=== PATIENT | female | born 1950 | race Caucasian/White ===

== ENCOUNTER → 2017-11-01 | Outpatient (CLI) | payer MEDICARE ==
--- NOTE | 2017-11-01 11:20 | BD ---
EXAMINATION TYPE: Axial Bone Density DATE OF EXAM: 11/01/2017 COMPARISON: NONE CLINICAL HISTORY: 67 YR OLD FEMALE....ICD-10 CODE: Z13.820 OSTEOPOROSIS Height: 63 Weight: 174 FRAX RISK QUESTIONS: Current Tobacco Use: YES RISK FACTORS HISTORY OF: Active: YES Diet low in dairy products/other sources of calcium: NO Postmenopausal woman: YES AT 45 YRS OLD MEDICATIONS: Additional Medications: SIMVASTATIN, Additional History: ARTHRITIS, BACK AND NECK EXAM MEASUREMENTS: Bone mineral densitometry was performed using the [employer] System. Bone mineral density as measured about the Lumbar spine is: ----- L1-L4(G/cm2): 1.347 T Score Values are as follows: ----- L1: 0.3 ----- L2: -0.2 ----- L3: 2.5 ----- L4: 2.8 ----- L1-L4: 1.4 Bone mineral density IS HER FIRST BONE DENSITY AT [facility] Bone mineral density about the R hip (g/cm2): 0.795 Bone mineral density about the L hip (g/cm2): 0.859 T Score values are as follows: -----R Neck: -2.0 -----L Neck: -1.2 -----R Total: -1.7 -----L Total: -1.2 Bone mineral density IS HER FIRST AT [facility] FRAX%s: THERE IS A 9.0% CHANCE OF A MAJOR OSTEOPOROTIC FX AND A 3.3% FOR HIP FX....PROBABILITY OF FX IN 10 YRS TIME IMPRESSION: Osteopenia (T Score between -2.5 and -1). There is slightly increased risk of fracture and the patient may be considered for treatment. Re-Screen 2-5 years. NOTE: T-SCORE=SD OF THE YOUNG ADULT MEAN.
--- NOTE | 2017-11-05 09:53 | MM ---
Reason for exam: screening (asymptomatic). Last mammogram was performed 3 years and 9 months ago. History: Patient is postmenopausal. Core biopsy of the left breast. Physical Findings: A clinical breast exam by your physician is recommended on an annual basis and results should be correlated with mammographic findings. MG 3D Screening Mammo W/Cad Bilateral CC and MLO view(s) were taken. Prior study comparison: January 21, 2014, bilateral MG screening mammo w CAD. September 12, 2011, bilateral digital screening mammo w/CAD. The breast tissue is heterogeneously dense. This may lower the sensitivity of mammography. No suspicious abnormality. No significant changes when compared with prior studies. ASSESSMENT: Negative, BI-RAD 1 RECOMMENDATION: Routine screening mammogram of both breasts in 1 year.
== END | disposition home or self-care (01) ==
LOC: RADMAMWWP 09:31
PROVIDERS: ATTEND Family Medicine
DX: Z12.31 Encounter for screening mammogram for malignant neoplasm of breast (principal); Z13.820 Encounter for screening for osteoporosis; M85.852 Other specified disorders of bone density and structure, left thigh; M85.851 Other specified disorders of bone density and structure, right thigh
CPT/HCPCS: 77063; 77067; 77080

== ENCOUNTER → 2020-05-10 | Outpatient (CLI) | payer MEDICARE ==
--- NOTE | 2020-05-11 09:58 | MM ---
Reason for exam: screening (asymptomatic). Last mammogram was performed 2 years and 6 months ago. History: Patient is postmenopausal. Core biopsy of the left breast. Physical Findings: A clinical breast exam by your physician is recommended on an annual basis and results should be correlated with mammographic findings. MG 3D Screening Mammo W/Cad Bilateral CC and MLO view(s) were taken. Prior study comparison: November 01, 2017, bilateral MG 3d screening mammo w/cad. January 21, 2014, bilateral MG screening mammo w CAD. There are scattered fibroglandular densities. There is no discrete abnormality. No significant changes when compared with prior studies. ASSESSMENT: Negative, BI-RAD 1 RECOMMENDATION: Routine screening mammogram of both breasts in 1 year.
== END | disposition home or self-care (01) ==
LOC: RADMAMWWP 10:53
PROVIDERS: ATTEND Family Medicine
DX: Z12.31 Encounter for screening mammogram for malignant neoplasm of breast (principal)
CPT/HCPCS: 77063; 77067

== ENCOUNTER 2021-10-01 08:44 | Inpatient (IN) | payer MEDICARE ==
[2021-10-01] MEDS ORDERED: SODIUM CHLORIDE 0.9% 500 ML 500 ML IV STA (09:04)
[2021-10-01] MEDS ORDERED: MORPHINE SULFATE 2 MG/ML SYRINGE IVP STA (09:04)
[2021-10-01] MEDS ORDERED: ONDANSETRON 4 MG/2 ML VIAL IVP STA (09:04)
[2021-10-01] MEDS ORDERED: FAMOTIDINE 20 MG/2 ML VIAL IV STA (09:05)
--- NOTE | 2021-10-01 09:07 | ED ---
General Adult HPI <Rui Carney - Last Filed: 10/01/21 10:30> - General Source: patient, RN notes reviewed Mode of arrival: ambulatory Limitations: no limitations <Ajit Rodriguez - Last Filed: 10/01/21 11:40> - General Chief complaint: Abdominal Pain Stated complaint: abd pain Time Seen by Provider: 10/01/21 08:54 - History of Present Illness Initial comments: Patient is a very pleasant 71-year-old female presenting to the emergency department with abdominal problems. Onset of symptoms was 2 and half days ago after eating in a restaurant. Patient did have nausea and retching for a couple of times. Patient still has some nausea however has not vomited recently. Patient did have 2 episodes of loose stool that was a little bit dark. Patient has been having abdominal discomfort, mostly right lower abdomen. No fever. No history of chronic similar problems. (Ajit Rodriguez) - Related Data Home Medications Medication Instructions Recorded Confirmed Omeprazole 40 mg PO AC-BRKFST 11/20/14 11/20/14 Simvastatin [Zocor] 40 mg PO HS 11/20/14 11/20/14 Previous Rx's Medication Instructions Recorded Meclizine [Antivert] 25 mg PO TID #30 tab 11/20/14 Allergies Allergy/AdvReac Type Severity Reaction Status Date / Time amoxicillin trihydrate AdvReac Diarrhea Verified 10/01/21 08:47 [From Augmentin] potassium clavulanate AdvReac Diarrhea Verified 10/01/21 08:47 [From Augmentin] Review of Systems ROS Other: All systems not noted in ROS Statement are negative. <Rui Carney - Last Filed: 10/01/21 10:30> ROS Other: All systems not noted in ROS Statement are negative. Constitutional: Denies: fever Eyes: Denies: eye pain ENT: Denies: ear pain Respiratory: Denies: cough Cardiovascular: Denies: chest pain Endocrine: Denies: fatigue Gastrointestinal: Reports: as per HPI, abdominal pain, nausea, vomiting Genitourinary: Denies: dysuria Musculoskeletal: Denies: back pain Skin: Denies: rash Neurological: Denies: weakness <Ajit Rodriguez - Last Filed: 10/01/21 11:40> ROS Statement: Those systems with pertinent positive or pertinent negative responses have been documented in the HPI. Past Medical History Past Medical History: Asthma, CVA/TIA, Diabetes Mellitus, GERD/Reflux, Hyperlipidemia History of Any Multi-Drug Resistant Organisms: None Reported Past Surgical History: Cholecystectomy, Hysterectomy Past Psychological History: No Psychological Hx Reported Smoking Status: Never smoker Past Alcohol Use History: None Reported Past Drug Use History: None Reported <Ajit Rodriguez - Last Filed: 10/01/21 11:40> General Exam Rectal exam: Present: normal rectal tone, hemorrhoids. Absent: decreased rectal tone, fecal impaction, mass, tenderness <Rui Carney - Last Filed: 10/01/21 10:30> Limitations: no limitations General appearance: alert, in no apparent distress Head exam: Present: normocephalic Eye exam: Present: normal appearance Neck exam: Present: normal inspection Respiratory exam: Present: normal lung sounds bilaterally Cardiovascular Exam: Present: regular rate, normal rhythm Expanded Peripheral pulses: 2+: Dorsalis Pedis (R), Dorsalis Pedis (L) GI/Abdominal exam: Present: soft, tenderness (Mild diffuse tenderness, moderate right lower quadrant), guarding, normal bowel sounds. Absent: distended, rebound, rigid, pulsatile mass Extremities exam: Present: normal inspection. Absent: pedal edema, calf tenderness Neurological exam: Present: alert Psychiatric exam: Present: normal affect, normal mood Skin exam: Present: normal color <Ajit Rodriguez - Last Filed: 10/01/21 11:40> Course Vital Signs 10/01/21 10/01/21 08:47 10:51 Temperature 98.2 F 98.2 F Pulse Rate 106 H 78 Respiratory 18 18 Rate Blood Pressure 148/72 115/78 O2 Sat by Pulse 95 95 Oximetry Medical Decision Making - Lab Data Result diagrams: 10/01/21 09:38 10/01/21 09:38 <Rui Carney - Last Filed: 10/01/21 10:30> - Lab Data Result diagrams: 10/01/21 09:38 10/01/21 09:38 - Radiology Data Radiology results: image reviewed (As discussed with radiologist concerning for appendicitis.) <Ajit Rodriguez - Last Filed: 10/01/21 11:40> - Medical Decision Making Patient reevaluated and resting upright in bed, somewhat improved. Patient and family updated on results and plan. Dr. Arnett has been paged for admission Case was discussed with Dr. Olson who will admit and requests adding Flagyl. (Ajit Rodriguez) - Lab Data Lab Results 10/01/21 10/01/21 10/01/21 Range/Units 09:38 09:38 11:01 WBC 16.3 H (3.8-10.6) k/uL RBC 4.84 (3.80-5.40) m/uL Hgb 13.2 (11.4-16.0) gm/dL Hct 42.5 (34.0-46.0) % MCV 87.7 (80.0-100.0) fL MCH 27.2 (25.0-35.0) pg MCHC 31.0 (31.0-37.0) g/dL RDW 14.3 (11.5-15.5) % Plt Count 276 (150-450) k/uL MPV 7.3 Neutrophils % 82 % Lymphocytes % 10 % Monocytes % 5 % Eosinophils % 0 % Basophils % 0 % Neutrophils # 13.4 H (1.3-7.7) k/uL Lymphocytes # 1.7 (1.0-4.8) k/uL Monocytes # 0.8 (0-1.0) k/uL Eosinophils # 0.1 (0-0.7) k/uL Basophils # 0.1 (0-0.2) k/uL Hypochromasia Slight Sodium 138 (137-145) mmol/L Potassium 3.5 (3.5-5.1) mmol/L Chloride 103 (98-107) mmol/L Carbon Dioxide 22 (22-30) mmol/L Anion Gap 13 mmol/L BUN 17 (7-17) mg/dL Creatinine 0.81 (0.52-1.04) mg/dL Est GFR (CKD-EPI)AfAm 85 (>60 ml/min/1.73 sqM) Est GFR (CKD-EPI)NonAf 74 (>60 ml/min/1.73 sqM) Glucose 115 H (74-99) mg/dL Calcium 9.1 (8.4-10.2) mg/dL Total Bilirubin 0.5 (0.2-1.3) mg/dL AST 24 (14-36) U/L ALT 16 (4-34) U/L Alkaline Phosphatase 90 (38-126) U/L Total Protein 6.9 (6.3-8.2) g/dL Albumin 4.0 (3.5-5.0) g/dL Amylase 40 (30-110) U/L Lipase 66 (23-300) U/L Stool Occult Blood Negative (Negative) Disposition <Rui Carney - Last Filed: 10/01/21 10:30> Is patient prescribed a controlled substance at d/c from ED?: No Time of Disposition: 11:29 <Ajit Rodriguez - Last Filed: 10/01/21 11:40> Clinical Impression: Acute appendicitis Disposition: ADMITTED IP TO THIS HOSP Referrals: Leonard Deng DO [Primary Care Provider] - 1-2 days
[2021-10-01 10:16] LABS: Basophils # (A) 0.1 k/uL (0-0.2); Basophils % (A) 0 %; Eosinophils # (A) 0.1 k/uL (0-0.7); Eosinophils % (A) 0 %; HCT 42.5 % (34.0-46.0); HGB 13.2 gm/dL (11.4-16.0); Hypochromasia Slight; Lymphocytes # (A) 1.7 k/uL (1.0-4.8); Lymphocytes % (A) 10 %; MCH 27.2 pg (25.0-35.0); MCV 87.7 fL (80.0-100.0); Mean Platelet Volume 7.3; Monocytes # (A) 0.8 k/uL (0-1.0); Monocytes % (A) 5 %; Neutrophils # (A) 13.4 k/uL (1.3-7.7); Neutrophils % (A) 82 %; Platelet Count 276 k/uL (150-450); RBC 4.84 m/uL (3.80-5.40); RDW 14.3 % (11.5-15.5); WBC 16.3 k/uL (3.8-10.6)
[2021-10-01 10:29] LABS: Calcium 9.1 mg/dL (8.4-10.2); Potassium 3.5 mmol/L (3.5-5.1); Total Bilirubin 0.5 mg/dL (0.2-1.3); Total Protein 6.9 g/dL (6.3-8.2)
--- NOTE | 2021-10-01 11:19 | CT ---
EXAMINATION TYPE: CT abdomen pelvis w con DATE OF EXAM: 10/01/2021 COMPARISON: CT 02/20/2012 HISTORY: RLQ pain x [address] DLP: 1757.7 mGycm Automated exposure control for dose reduction was used. TECHNIQUE: Helical acquisition of images from the lung bases through the pelvis have been completed. CONTRAST: Performed without Oral Contrast and with IV Contrast, patient injected with 100 ml mL of Isovue 300. FINDINGS: Hiatal hernia with partial intrathoracic stomach is noted LUNG BASES: No significant abnormality is appreciated. AORTA: No significant abnormality is appreciated. LIVER/GB: Some low dense foci scattered within the liver are consistent with possible cysts, patient is post cholecystectomy, mild prominence the central biliary ducts is chronic and likely due to postc holecystectomy change PANCREAS: No significant abnormality is seen. SPLEEN: No significant abnormality is seen, stable finding, small splenule noted anteriorly and also at the level of the hilum. ADRENALS: No significant abnormality is seen. KIDNEYS: No significant change is seen. REPRODUCTIVE ORGANS: Not seen BOWEL: The appendix is distended, thickened with some periappendiceal inflammatory change, there may be appendicoliths present but are seen on coronal image #43. Some scattered diverticular changes are present, some fluid-filled loops of small bowel are noted without evident obstruction FREE AIR: No Free Air visible. ASCITES: None visible. PELVIC ADENOPATHY: None visualized. RETROPERITONEAL ADENOPATHY: No Retroperitoneal Adenopathy visible. URINARY BLADDER: No significant abnormality is seen. OSSEOUS STRUCTURES: Degenerative disc changes are present visualized spine, there is some associated facet arthropathy and spinal curvature. Lipoma is present anterior to the proximal right lower extre mity within the musculature is stable IMPRESSION: ACUTE APPENDICITIS and report is called to the referring clinician at the time of interpretation to Maria Eugenia Rodriguez.
[2021-10-01] MEDS ORDERED: ACETAMINOPHEN TAB 325 MG TAB PO PRN (11:32)
[2021-10-01] MEDS ORDERED: NALOXONE 0.4 MG/ML 1 ML VIAL IV PRN (11:32)
[2021-10-01] MEDS ORDERED: ONDANSETRON 4 MG/2 ML VIAL IVP PRN (11:32)
[2021-10-01 12:09] LABS: Appearance,Urine Cloudy (Clear); Bacteria,Urine Moderate /hpf; Bilirubin,Urine Negative (Negative); Blood,Urine Negative (Negative); Color,Urine Yellow; Glucose,Urine (UA) Negative (Negative); Hyaline Casts,Urine 49 /lpf (0-2); Ketones,Urine 3+ (Negative); Leukocyte Esterase,Urine Moderate (Negative); Mucus,Urine Many /hpf; Nitrite,Urine Positive (Negative); Protein,Urine 1+ (Negative); RBC,Urine 7 /hpf (0-5); Squamous Epithelial Cell,Urine 1 /hpf (0-4); Urobilinogen,Urine <2.0 mg/dL (<2.0); WBC,Urine 41 /hpf (0-5)
[2021-10-01 12:11] LABS: Specific Gravity,Urine 1.046 (1.001-1.035)
[2021-10-01] MEDS ORDERED: IV FLUID CONTINUATION 1,000 ML IV ONE (12:11)
--- NOTE | 2021-10-01 12:19 | P.GSHP ---
History of Present Illness H&P Date: 10/01/21 Chief Complaint: Abdominal pain The patient's a 71-year-old female who began feeling ill around . She had nausea vomiting and diarrhea. She thought she had "food poisoning". Then she gradually began developing pain in the right lower quadrant. She came into the ER today and had a computed tomography scan showing acute appendicitis. Denies fevers or chills. - Review of Systems All systems: negative Past Medical History Past Medical History: Asthma, CVA/TIA, Diabetes Mellitus, GERD/Reflux, Hyperlipidemia History of Any Multi-Drug Resistant Organisms: None Reported Past Surgical History: Cholecystectomy, Hysterectomy Past Psychological History: No Psychological Hx Reported Smoking Status: Never smoker Past Alcohol Use History: None Reported Past Drug Use History: None Reported Medications and Allergies Home Medications Medication Instructions Recorded Confirmed Type Meclizine [Antivert] 25 mg PO TID #30 tab 11/20/14 Rx Omeprazole 40 mg PO AC-BRKFST 11/20/14 11/20/14 History Simvastatin [Zocor] 40 mg PO HS 11/20/14 11/20/14 History Allergies Allergy/AdvReac Type Severity Reaction Status Date / Time amoxicillin trihydrate AdvReac Diarrhea Verified 10/01/21 08:47 [From Augmentin] potassium clavulanate AdvReac Diarrhea Verified 10/01/21 08:47 [From Augmentin] Surgical - Exam Osteopathic Statement: *. No significant issues noted on an osteopathic structural exam other than those noted in the History and Physical/Consult. Vital Signs Temp Pulse Resp BP Pulse Ox 98.2 F 106 H 18 148/72 95 10/01/21 08:47 10/01/21 08:47 10/01/21 08:47 10/01/21 08:47 10/01/21 08:47 - General well developed, well nourished, no distress - Eyes normal ocular movement - Neck trachea midline - Respiratory clear to auscultation - Cardiovascular Rhythm: regular - Abdomen Abdomen: soft, tender (Generalize, most prominent right lower quadrant with some voluntary guarding), bowel sounds (Hypoactive) Hernia: no umbilical Results - Labs 10/01/21 09:38 10/01/21 09:38 Abnormal Lab Results - Last 24 Hours (Table) 10/01/21 10/01/21 10/01/21 Range/Units 09:38 09:38 11:10 WBC 16.3 H (3.8-10.6) k/uL Neutrophils # 13.4 H (1.3-7.7) k/uL Glucose 115 H (74-99) mg/dL Urine Appearance Cloudy H (Clear) Ur Specific [place] 1.046 H (1.001-1.035) Urine Protein 1+ H (Negative) Urine Ketones 3+ H (Negative) Urine Nitrite Positive H (Negative) Ur Leukocyte Esterase Moderate H (Negative) Urine RBC 7 H (0-5) /hpf Urine WBC 41 H (0-5) /hpf Urine Bacteria Moderate H (None) /hpf Hyaline Casts 49 H (0-2) /lpf Urine Mucus Many H (None) /hpf Diabetes panel 10/01/21 Range/Units 09:38 Sodium 138 (137-145) mmol/L Potassium 3.5 (3.5-5.1) mmol/L Chloride 103 (98-107) mmol/L Carbon Dioxide 22 (22-30) mmol/L BUN 17 (7-17) mg/dL Creatinine 0.81 (0.52-1.04) mg/dL Glucose 115 H (74-99) mg/dL Calcium 9.1 (8.4-10.2) mg/dL AST 24 (14-36) U/L ALT 16 (4-34) U/L Alkaline Phosphatase 90 (38-126) U/L Total Protein 6.9 (6.3-8.2) g/dL Albumin 4.0 (3.5-5.0) g/dL Calcium panel 10/01/21 Range/Units 09:38 Calcium 9.1 (8.4-10.2) mg/dL Albumin 4.0 (3.5-5.0) g/dL Pituitary panel 10/01/21 Range/Units 09:38 Sodium 138 (137-145) mmol/L Potassium 3.5 (3.5-5.1) mmol/L Chloride 103 (98-107) mmol/L Carbon Dioxide 22 (22-30) mmol/L BUN 17 (7-17) mg/dL Creatinine 0.81 (0.52-1.04) mg/dL Glucose 115 H (74-99) mg/dL Calcium 9.1 (8.4-10.2) mg/dL Adrenal panel 10/01/21 Range/Units 09:38 Sodium 138 (137-145) mmol/L Potassium 3.5 (3.5-5.1) mmol/L Chloride 103 (98-107) mmol/L Carbon Dioxide 22 (22-30) mmol/L BUN 17 (7-17) mg/dL Creatinine 0.81 (0.52-1.04) mg/dL Glucose 115 H (74-99) mg/dL Calcium 9.1 (8.4-10.2) mg/dL Total Bilirubin 0.5 (0.2-1.3) mg/dL AST 24 (14-36) U/L ALT 16 (4-34) U/L Alkaline Phosphatase 90 (38-126) U/L Total Protein 6.9 (6.3-8.2) g/dL Albumin 4.0 (3.5-5.0) g/dL - Imaging CT scan - abdomen: report reviewed, image reviewed Assessment and Plan (1) Acute appendicitis Current Visit: Yes Status: Acute Code(s): K35.80 - UNSPECIFIED ACUTE APPENDICITIS SNOMED Code(s): 94385944 (2) COPD (chronic obstructive pulmonary disease) Current Visit: Yes Status: Acute Code(s): J44.9 - CHRONIC OBSTRUCTIVE PULMONARY DISEASE, UNSPECIFIED SNOMED Code(s): 71423162 (3) Diabetes Current Visit: Yes Status: Acute Code(s): E11.9 - TYPE 2 DIABETES MELLITUS WITHOUT COMPLICATIONS SNOMED Code(s): 86961999 (4) History of CVA (cerebrovascular accident) Current Visit: Yes Status: Acute Code(s): Z86.73 - PRSNL HX OF TIA (TIA), AND CEREB INFRC W/O RESID DEFICITS SNOMED Code(s): 838323429 (5) GERD (gastroesophageal reflux disease) Current Visit: Yes Status: Acute Code(s): K21.9 - GASTRO-ESOPHAGEAL REFLUX DISEASE WITHOUT ESOPHAGITIS SNOMED Code(s): 356535688 Plan: We'll do laparoscopic appendectomy possible open. The procedure, risks and complications were discussed. Questions were encouraged and answered. DVT and ulcer prophylaxis. Incentive spirometry. Monitor blood sugars.
[2021-10-01] MEDS: LACTATED RINGERS 1,000 ML IV ONE ×2 (12:25→12:30)
[2021-10-01] MEDS ORDERED: DEXAMETHASONE SOD PHOSPHATE 4 MG/ML 1 ML VIAL IVP ONE (12:25)
[2021-10-01] MEDS ORDERED: ONDANSETRON 4 MG/2 ML VIAL IVP ONE (12:25)
[2021-10-01] MEDS ORDERED: METOCLOPRAMIDE 5 MG/ML 2 ML VIAL IVP ONE (12:25)
[2021-10-01] MEDS ORDERED: FAMOTIDINE 20 MG/2 ML VIAL IVP ONE (12:25)
[2021-10-01] MEDS ORDERED: MIDAZOLAM 2 MG/2 ML VIAL ONE (12:27)
[2021-10-01] MEDS ORDERED: GLYCOPYRROLATE 0.2 MG/ML 2 ML VIAL ONE (12:27)
[2021-10-01] MEDS ORDERED: ROCURONIUM 10 MG/ML (5 ML VIAL) IV ONE (12:27)
[2021-10-01] MEDS ORDERED: KETOROLAC 15 MG/ML 1 ML VIAL ONE (12:27)
[2021-10-01] MEDS ORDERED: SUCCINYLCHOLINE CHLORIDE 100 MG/5 ML SYR IV ONE (12:27)
[2021-10-01] MEDS ORDERED: PHENYLEPHRINE-0.9% NACL SYG 1,000 MCG/10 ML SYRINGE ONE (12:27)
[2021-10-01] MEDS ORDERED: fentaNYL (PF) 50 MCG/ML 2 ML AMP ONE (12:27)
[2021-10-01] MEDS ORDERED: NEOSTIGMINE 1 MG/ML 10 ML VIAL ONE (12:27)
[2021-10-01] MEDS ORDERED: PROPOFOL 10 MG/ML 20 ML VIAL IV ONE (12:27)
[2021-10-01] MEDS ORDERED: LIDOCAINE 2% INJ 20 MG/ML (2 ML VIAL) ONE (12:27)
[2021-10-01] MEDS ORDERED: HEPARIN SODIUM,PORCINE 5,000 UNIT/ML 1 ML VIAL ONE (12:27)
[2021-10-01] MEDS ORDERED: SODIUM CHLORIDE 0.9% 50 ML with ceFAZolin 2,000 MG IV ONE ×2 (12:30)
[2021-10-01] MEDS ORDERED: BUPIVACAIN-EPI 0.25%-1:200,000 30 ML VIAL SQ ONE ×2 (12:37)
[2021-10-01] MEDS: metroNIDAZOLE-NS PMX 500 MG in SALINE 1 100ML.BAG IVPB SCH ×3 (12:42→20:26)
[2021-10-01] MEDS ORDERED: LACTATED RINGERS 1,000 ML IV ONE (13:28)
--- NOTE | 2021-10-01 13:38 | P.OP ---
Date of Procedure: 10/01/21 Preoperative Diagnosis: Acute appendicitis Postoperative Diagnosis: Acute appendicitis with early gangrene Procedure(s) Performed: Laparoscopic appendectomy Anesthesia: JEN Surgeon: Jacquelyn Arnett Estimated Blood Loss (ml): 5 Pathology: other (Appendix) Condition: stable Disposition: PACU Indications for Procedure: Patient presented with abdominal pain. CT shows acute appendicitis Description of Procedure: Patient's taken the operative suite where she is prepped and draped in the usual sterile manner under general endotracheal anesthetic. A supraumbilical incision was made and a Veress needle was placed into the abdominal cavity. Pneumoperitoneum was established with CO2 gas. The scope was inserted and she had quite a bit of adhesions of the omentum to the lower midline and right abdomen. Trocar was placed into the left lower quadrant. Adhesions of the omentum were taken down sharply. The suprapubic trocar was unable to be placed. She was rotated towards her left. The appendix was markedly enlarged. The terminal ileum was reflected medially. The cecum was mobilized along the white line of [place]. The mesentery of the appendix was then taken down with harmonic scissors to the base. There was some gangrenous change near the base. A HERBIE stapler was then used to divide the appendix taking a small amount of the cecum (4-5 mm) with it. The appendix was then placed into a specimen retrieval bag. The cecum paracolic gutter and pelvis were irrigated and aspirated. At that point everything appeared hemostatic. The staple line appeared to be on healthy pink tissue. The pneumoperitoneum was released. The trochars were removed. The specimen removed tearful bag was removed. Fascia at the supraumbilical incision was closed with 0 Vicryl. The skin incisions were closed with alex. Sterile dressings were applied. She tolerated the procedure without difficulty and was taken to recovery room in satisfactory condition. According to or personnel, all counts were correct.
[2021-10-01 14:02] LABS: Glucose,Whole Blood 115 mg/dL (70-110)
[2021-10-01] MEDS ORDERED: HYDROmorphone 0.5 MG/0.5 ML SYRINGE IVP ONE ×2 (14:35→14:47)
[2021-10-01 14:50] LABS: Partial Thromboplastin Time 23.5 sec (22.0-30.0); Prothrombin Time 10.8 sec (9.0-12.0)
[2021-10-01] MEDS ORDERED: metroNIDAZOLE-NS PMX 500 MG in SALINE 1 100ML.BAG IVPB SCH (16:00)
[2021-10-01] MEDS: SODIUM CHLORIDE 0.9% 1,000 ML IV SCH ×2 (17:05→20:12)
[2021-10-01] MEDS: LEVOFLOXACIN 500MG-D5W PMX 500 MG in DEXTROSE/WATER 1 100ML.BAG IVPB SCH (17:58)
[2021-10-01] MEDS: KETOROLAC 15 MG/ML 1 ML VIAL IVP SCH (20:04)
[2021-10-01] MEDS: HYDROcodone/APAP 5-325MG 1 EACH TAB PO PRN (20:10)
[2021-10-01] MEDS: ATORVASTATIN 20 MG TAB PO SCH (20:10)
[2021-10-01] MEDS: HEPARIN SODIUM,PORCINE/PF 5,000 UNIT/0.5 ML SYRINGE SQ SCH (20:13)
[2021-10-01] MEDS: SYMBICORT 160-4.5 MCG INHALER INHALATION SCH (20:24)
[2021-10-01] MEDS: MORPHINE SULFATE 4 MG/ML SYRINGE IV PRN (23:28)
[2021-10-02] MEDS: KETOROLAC 15 MG/ML 1 ML VIAL IVP SCH ×4 (00:47→17:18)
[2021-10-02] MEDS: metroNIDAZOLE-NS PMX 500 MG in SALINE 1 100ML.BAG IVPB SCH ×3 (05:02→19:44)
[2021-10-02] MEDS: SODIUM CHLORIDE 0.9% 1,000 ML IV SCH ×3 (05:03→16:52)
[2021-10-02] MEDS: HEPARIN SODIUM,PORCINE/PF 5,000 UNIT/0.5 ML SYRINGE SQ SCH ×2 (07:58→19:44)
[2021-10-02] MEDS: ATORVASTATIN 20 MG TAB PO SCH (07:58)
[2021-10-02] MEDS: SYMBICORT 160-4.5 MCG INHALER INHALATION SCH ×2 (08:04→20:17)
[2021-10-02] MEDS ORDERED: PANTOPRAZOLE 40 MG/10 ML VIAL IV SCH (09:00)
[2021-10-02] MEDS: HYDROcodone/APAP 5-325MG 1 EACH TAB PO PRN ×2 (10:31→21:30)
--- NOTE | 2021-10-02 11:43 | P.PN ---
Subjective Progress Note Date: 10/02/21 Principal diagnosis: Acute appendicitis The patient is postop day 1 laparoscopic appendectomy. She had acute appendicitis with some early gangrenous changes. She is complaining of discomfort in the right lower quadrant. Denies any incisional pain. Tolerated breakfast. No nausea or vomiting. Objective - Vital Signs Vital signs: Vital Signs Temp 97.7 F 10/02/21 08:00 Pulse 59 L 10/02/21 08:00 Resp 16 10/02/21 08:00 BP 103/66 10/02/21 08:00 Pulse Ox 93 L 10/02/21 08:00 FiO2 Intake & Output 10/01/21 10/02/21 10/02/21 18:59 06:59 18:59 Intake Total 1500 Output Total 65 Balance 1435 Weight 102.058 kg Intake: IV 1500 Output: Urine 60 Estimated Blood Loss 5 Other: # Voids 2 3 1 - Constitutional General appearance: Present: cooperative, no acute distress - Respiratory Respiratory: bilateral: CTA - Gastrointestinal General gastrointestinal: Present: decreased bowel sounds, soft Localized gastrointestinal: surgical scar: diffuse (Dressings are intact, clean and dry) - Labs CBC & Chem 7: 10/01/21 09:38 10/01/21 09:38 Labs: Abnormal Lab Results - Last 24 Hours (Table) 10/01/21 10/01/21 Range/Units 11:10 13:51 POC Glucose (mg/dL) 115 H (70-110) mg/dL Urine Appearance Cloudy H (Clear) Ur Specific [place] 1.046 H (1.001-1.035) Urine Protein 1+ H (Negative) Urine Ketones 3+ H (Negative) Urine Nitrite Positive H (Negative) Ur Leukocyte Esterase Moderate H (Negative) Urine RBC 7 H (0-5) /hpf Urine WBC 41 H (0-5) /hpf Urine Bacteria Moderate H (None) /hpf Hyaline Casts 49 H (0-2) /lpf Urine Mucus Many H (None) /hpf Microbiology - Last 24 Hours (Table) 10/01/21 11:10 Urine Culture - Preliminary Urine,Voided Assessment and Plan (1) Acute appendicitis Current Visit: Yes Status: Acute Code(s): K35.80 - UNSPECIFIED ACUTE APPENDICITIS SNOMED Code(s): 37756423 (2) COPD (chronic obstructive pulmonary disease) Current Visit: Yes Status: Acute Code(s): J44.9 - CHRONIC OBSTRUCTIVE PULMONARY DISEASE, UNSPECIFIED SNOMED Code(s): 97130259 (3) Diabetes Current Visit: Yes Status: Acute Code(s): E11.9 - TYPE 2 DIABETES MELLITUS WITHOUT COMPLICATIONS SNOMED Code(s): 66570933 (4) History of CVA (cerebrovascular accident) Current Visit: Yes Status: Acute Code(s): Z86.73 - PRSNL HX OF TIA (TIA), AND CEREB INFRC W/O RESID DEFICITS SNOMED Code(s): 390189676 (5) GERD (gastroesophageal reflux disease) Current Visit: Yes Status: Acute Code(s): K21.9 - GASTRO-ESOPHAGEAL REFLUX DISEASE WITHOUT ESOPHAGITIS SNOMED Code(s): 699172425 Plan: There was quite a bit of localized peritonitis along with a gangrenous change in the appendix. We will keep her on IV antibiotics today. Recheck lab in the [facility]. Pain control. Progressing slowly.
[2021-10-02 11:50] LABS: Basophils # (A) 0.02 X 10*3/uL (0.00-0.10); Basophils % (A) 0.1 %; Eosinophils # (A) 0 X 10*3/uL (0.04-0.35); Eosinophils % (A) 0 %; HCT 34.9 % (37.2-46.3); HGB 10.2 g/dL (12.0-15.0); Immature Grans, Automated 0.4 %; Lymphocytes # (A) 1.07 X 10*3/uL (0.90-5.00); Lymphocytes % (A) 7.9 %; MCH 26.1 pg (27.0-32.0); MCHC 29.2 g/dL (32.0-37.0); MCV 89.3 fL (80.0-97.0); Mean Platelet Volume 9.8 fL (9.5-12.2); Monocytes # (A) 0.87 X 10*3/uL (0.20-1.00); Monocytes % (A) 6.4 %; NRBC Per 100 WBC 0 /100 WBCS (0.0-0.0); Neutrophils # (A) 11.58 X 10*3/uL (1.80-7.70); Neutrophils % (A) 85.2 %; Platelet Count 245 X 10*3/uL (140-440); RBC 3.91 X 10*6/uL (4.10-5.20); RDW 14.6 % (11.5-14.5); WBC 13.59 X 10*3/uL (4.50-10.00)
[2021-10-02 12:03] LABS: ALT 28 U/L (8-44); AST 28 U/L (13-35); African American GFR (CKD) 73.9 (60.0-200.0); Albumin 3.4 g/dL (3.8-4.9); Albumin/Globulin Ratio 1.57 (1.60-3.17); Alkaline Phosphatase 108 U/L (41-126); BUN/Creat Ratio 18.41 Ratio (12.00-20.00); Blood Urea Nitrogen 16.7 mg/dL (9.0-27.0); Carbon Dioxide 25.7 mmol/L (20.0-27.5); Chloride 103 mmol/L (96-109); Globulin 2.2 g/dL (1.6-3.3); Glucose 130 mg/dL (70-110); Non-African American GFR(CKD) 63.7 (60.0-200.0); Potassium 3.7 mmol/L (3.5-5.5); Sodium 140 mmol/L (135-145); Total Bilirubin <0.15 mg/dL (0.30-1.20); Total Protein 5.6 g/dL (6.2-8.2)
[2021-10-02] MEDS: LEVOFLOXACIN 500MG-D5W PMX 500 MG in DEXTROSE/WATER 1 100ML.BAG IVPB SCH (15:58)
--- NOTE | 2021-10-02 16:58 | P.CONS ---
History of Present Illness - Reason for Consult Consult date: 10/02/21 Medical management Requesting physician: Jacquelyn Arnett - Chief Complaint Abdominal pain - History of Present Illness This is a very pleasant 71-year-old patient who follows Dr. Deng. Chronic stable medical conditions include asthma, diabetes, GERD, hyperlipidemia. Patient has a sister in the room with her. 4 days ago had gone out to eat. That night patient started having nausea vomiting and diarrhea. Following day patient developed pain in the right lower quadrant. Also had a very dark color stool. The next day again patient had a dark color stool. No fever and chills. Presented to the ER. Computed tomography scan of the abdomen showed a distended taken appendix with appendicoliths. Patient yesterday underwent laparoscopic appendectomy was discovered to have appendicitis with early gangrene. Today patient sitting at the side of the bed. Some abdominal pain is present. Was on a liquid diet. Review of systems: GEN.: Tired EYES: None HEENT: None NECK: None RESPIRATORY: None CARDIOVASCULAR: None GASTROINTESTINAL: As above GENITOURINARY: None MUSCULOSKELETAL: Joint pains LYMPHATICS: None HEMATOLOGICAL: None PSYCHIATRY: None NEUROLOGICAL: None Past medical history to include: Asthma, diabetes, GERD, hyperlipidemia, arthritis Social history: Patient smoked a pack a day for 40 years stopped a year ago. Mr. . No alcohol. Retired principal java software engineer. Family history: Reviewed, noncontributory to presentation Physical examination: VITAL SIGNS: 97.9, 68, 18, 1 23 x 64, 95% room air GENERAL: BMI 38.6, sitting of age in bed, awake, not in distress. EYES: Pupils equal. Conjunctiva normal. HEENT: External appearance of nose and ears normal, oral cavity grossly normal. NECK: JVD not raised; masses not palpable. HEART: First and second heart sounds are normal; no edema. LUNGS: Respiratory rate normal; clear to auscultation. ABDOMEN: Soft, some tenderness, no guarding rigidity, liver spleen not palpable, no masses palpable. PSYCH: Alert and oriented x3; mood and affect normal. MUSCULOSKELETAL:No Clubbing/cyanosis;muscles-grossly intact, evidence of OA NEUROLOGICAL: Cranial nerves grossly intact; no facial asymmetry, power and sensation grossly intact. LYMPHATICS: No lymph nodes palpable in the axilla and neck INVESTIGATIONS, reviewed in the clinical context: White count 16.3 hemoglobin 13.2 platelets 276 sodium 138 progression 3.5 BUN 17 creatinine 0.81 UA positive for leukoesterase, WBC Computed tomography scan abdomen: Evidence of appendicitis/appendicolith. Diverticulosis Assessment and plan: -Acute appendicitis with early gangrene Laparoscopic appendectomy on October [address] Arnett. IV cefoxitin, IV Flagyl -Patient had 2 episodes of dark stools. Hemoglobin is also drop. Patient has a significant history of GERD. Patient will need EGD. Discussed the Dr. Arnett. She will further evaluated. Add PPI -Acute anemia from blood loss from GI bleed Follow H&H -Obesity BMI 38.6 Weight loss measures -Hyperlipidemia Zocor 80 mg daily at bedtime -Moderate persistent asthma Symbicort 1604.52 puffs twice a day -GERD significant PPI Patient IV cefoxitin, IV Flagyl. PPI. Home medications resumed. Discussed the Dr. Arnett. Would consider EGD given 2 days of dark stools and drop in hemoglobin. Discussed with patient's sister the bedside. Thank you Dr. Arnett Past Medical History Past Medical History: Asthma, CVA/TIA, Diabetes Mellitus, GERD/Reflux, Hyperlipidemia History of Any Multi-Drug Resistant Organisms: None Reported Past Surgical History: Cholecystectomy, Hysterectomy Past Anesthesia/Blood Transfusion Reactions: No Reported Reaction Past Psychological History: No Psychological Hx Reported Smoking Status: Former smoker Past Alcohol Use History: None Reported Past Drug Use History: None Reported Medications and Allergies Home Medications Medication Instructions Recorded Confirmed Type Simvastatin [Zocor] 80 mg PO HS 11/20/14 10/01/21 History Budesonide-Formot 160-4.5 Mcg 2 puff INHALATION RT-Q12H 10/01/21 10/01/21 History [Symbicort 160-4.5 Mcg Inhaler] Allergies Allergy/AdvReac Type Severity Reaction Status Date / Time amoxicillin trihydrate AdvReac Diarrhea Verified 10/01/21 13:38 [From Augmentin] potassium clavulanate AdvReac Diarrhea Verified 10/01/21 13:38 [From Augmentin] Physical Exam Vitals: Vital Signs Temp Pulse Pulse Resp BP Pulse Ox 10/02/21 08:00 97.7 F 59 L 16 103/66 93 L 10/02/21 02:00 97.9 F 51 L 16 123/57 93 L 10/01/21 18:30 98.2 F 51 L 23 112/64 97 10/01/21 17:33 61 105/66 94 L 10/01/21 17:28 49 L 95 10/01/21 17:19 59 L 114/60 95 10/01/21 16:49 70 125/55 95 10/01/21 16:33 63 117/66 95 10/01/21 16:18 63 116/65 96 10/01/21 16:04 59 L 117/55 95 10/01/21 15:48 67 119/67 96 10/01/21 15:34 18 10/01/21 15:32 97.9 F 64 20 125/64 96 10/01/21 15:11 80 16 114/53 98 10/01/21 14:56 77 16 116/63 98 10/01/21 14:41 89 16 126/64 98 10/01/21 14:26 80 18 129/61 98 10/01/21 14:11 79 16 129/77 97 10/01/21 13:56 92 16 128/77 99 10/01/21 13:46 97.6 F 103 H 16 142/60 99 Intake and Output 10/01/21 10/02/21 10/02/21 22:59 06:59 14:59 Other: # Voids 2 3 1 Weight 102.058 kg Results CBC & Chem 7: 10/02/21 07:12 10/02/21 07:08 Labs: Abnormal Lab Results - Last 24 Hours (Table) 10/01/21 10/02/21 10/02/21 Range/Units 13:51 07:08 07:12 WBC 13.59 H (4.50-10.00) X 10*3/uL RBC 3.91 L (4.10-5.20) X 10*6/uL Hgb 10.2 L (12.0-15.0) g/dL Hct 34.9 L (37.2-46.3) % MCH 26.1 L (27.0-32.0) pg MCHC 29.2 L (32.0-37.0) g/dL RDW 14.6 H (11.5-14.5) % Immature Gran # 0.05 H (0.00-0.04) X 10*3/uL Neutrophils # 11.58 H (1.80-7.70) X 10*3/uL Eosinophils # 0 L (0.04-0.35) X 10*3/uL Glucose 130 H (70-110) mg/dL POC Glucose (mg/dL) 115 H (70-110) mg/dL Calcium 8.0 L (8.7-10.3) mg/dL Total Bilirubin <0.15 L (0.30-1.20) mg/dL Total Protein 5.6 L (6.2-8.2) g/dL Albumin 3.4 L (3.8-4.9) g/dL Albumin/Globulin Ratio 1.57 L (1.60-3.17) g/dL Microbiology - Last 24 Hours (Table) 10/01/21 11:10 Urine Culture - Preliminary Urine,Voided
[2021-10-02] MEDS: PANTOPRAZOLE 40 MG TABLET PO SCH (17:08)
--- NOTE | 2021-10-02 19:22 | XR ---
EXAMINATION TYPE: XR chest 2V DATE OF EXAM: 10/02/2021 COMPARISON: 08/02/2009 HISTORY: Asthma. Short of breath TECHNIQUE: FINDINGS: Heart is normal. No heart failure. There are no hilar masses. There is linear density media l left upper lobe consistent with scarring or atelectasis. There is no pleural effusion. The bony thorax is intact. IMPRESSION: There is some scarring or atelectasis medial left upper lobe which is new compared to old exam. Normal heart.
[2021-10-02] MEDS: ZOLPIDEM 5 MG TAB PO SCH (21:29)
[2021-10-02 21:41] LABS: Glucose,Whole Blood 110 mg/dL (70-110)
[2021-10-03] MEDS: KETOROLAC 15 MG/ML 1 ML VIAL IVP SCH ×3 (00:21→11:41)
[2021-10-03] MEDS: SODIUM CHLORIDE 0.9% 1,000 ML IV SCH ×3 (02:15→16:30)
[2021-10-03] MEDS: HYDROcodone/APAP 5-325MG 1 EACH TAB PO PRN ×2 (02:24→07:03)
[2021-10-03] MEDS: MORPHINE SULFATE 4 MG/ML SYRINGE IV PRN (02:25)
[2021-10-03] MEDS: metroNIDAZOLE-NS PMX 500 MG in SALINE 1 100ML.BAG IVPB SCH ×3 (04:30→20:24)
[2021-10-03 05:30] LABS: Basophils # (A) 0.1 k/uL (0-0.2); Basophils % (A) 1 %; Eosinophils # (A) 0.1 k/uL (0-0.7); Eosinophils % (A) 2 %; HCT 35.2 % (34.0-46.0); Hypochromasia Moderate; Lymphocytes # (A) 1.4 k/uL (1.0-4.8); Lymphocytes % (A) 16 %; MCH 27.7 pg (25.0-35.0); MCHC 31.2 g/dL (31.0-37.0); MCV 88.9 fL (80.0-100.0); Mean Platelet Volume 7.3; Monocytes # (A) 0.4 k/uL (0-1.0); Monocytes % (A) 5 %; Neutrophils # (A) 6.3 k/uL (1.3-7.7); Neutrophils % (A) 75 %; Platelet Count 254 k/uL (150-450); RBC 3.95 m/uL (3.80-5.40); RDW 14.2 % (11.5-15.5); WBC 8.4 k/uL (3.8-10.6)
[2021-10-03 05:36] LABS: African American GFR (CKD) 73 (>60 ml/min/1.73 sqM); Anion Gap 7 mmol/L; Blood Urea Nitrogen 20 mg/dL (7-17); Calcium 7.8 mg/dL (8.4-10.2); Carbon Dioxide 23 mmol/L (22-30); Chloride 110 mmol/L (98-107); Glucose 105 mg/dL (74-99); Non-African American GFR(CKD) 64 (>60 ml/min/1.73 sqM); Potassium 3.4 mmol/L (3.5-5.1); Sodium 140 mmol/L (137-145)
[2021-10-03] MEDS: PANTOPRAZOLE 40 MG TABLET PO SCH ×2 (06:31→16:30)
[2021-10-03 07:01] LABS: Glucose,Whole Blood 102 mg/dL (70-110)
[2021-10-03] MEDS: ATORVASTATIN 20 MG TAB PO SCH (07:04)
[2021-10-03] MEDS: HEPARIN SODIUM,PORCINE/PF 5,000 UNIT/0.5 ML SYRINGE SQ SCH ×2 (07:04→21:05)
[2021-10-03] MEDS: SYMBICORT 160-4.5 MCG INHALER INHALATION SCH ×2 (08:40→20:12)
--- NOTE | 2021-10-03 10:31 | P.PN ---
Subjective Progress Note Date: 10/03/21 Principal diagnosis: Acute appendicitis The patient is seen on rounds. Her pain is improved. Tolerating a diet. She had a bowel movement which was soft and brown. No blood. As the patient had difficulty sleeping, she took half of the Ambien last night. She began seeing things and got very agitated and had a panic attack. The patient's anxious to go home. Objective - Vital Signs Vital signs: Vital Signs Temp 97.9 F 10/03/21 06:54 Pulse 67 10/03/21 06:54 Resp 22 10/03/21 07:00 BP 122/70 10/03/21 06:54 Pulse Ox 95 10/03/21 08:43 FiO2 Intake & Output 10/02/21 10/03/21 10/03/21 18:59 06:59 18:59 Intake Total 450 Balance 450 Intake: Oral 450 Other: # Voids 1 - Constitutional General appearance: Present: cooperative, no acute distress - Gastrointestinal General gastrointestinal: Present: normal bowel sounds, soft Localized gastrointestinal: surgical scar: diffuse (Incisions are intact, clean and dry) - Labs CBC & Chem 7: 10/03/21 04:26 10/03/21 04:26 Labs: Abnormal Lab Results - Last 24 Hours (Table) 10/02/21 10/02/21 10/03/21 Range/Units 07:08 07:12 04:26 WBC 13.59 H (4.50-10.00) X 10*3/uL RBC 3.91 L (4.10-5.20) X 10*6/uL Hgb 10.2 L 11.0 L (12.0-15.0) g/dL Hct 34.9 L (37.2-46.3) % MCH 26.1 L (27.0-32.0) pg MCHC 29.2 L (32.0-37.0) g/dL RDW 14.6 H (11.5-14.5) % Immature Gran # 0.05 H (0.00-0.04) X 10*3/uL Neutrophils # 11.58 H (1.80-7.70) X 10*3/uL Eosinophils # 0 L (0.04-0.35) X 10*3/uL Potassium (3.5-5.1) mmol/L Chloride (98-107) mmol/L BUN (7-17) mg/dL Glucose 130 H (70-110) mg/dL Calcium 8.0 L (8.7-10.3) mg/dL Total Bilirubin <0.15 L (0.30-1.20) mg/dL Total Protein 5.6 L (6.2-8.2) g/dL Albumin 3.4 L (3.8-4.9) g/dL Albumin/Globulin Ratio 1.57 L (1.60-3.17) g/dL 10/03/21 Range/Units 04:26 WBC (4.50-10.00) X 10*3/uL RBC (4.10-5.20) X 10*6/uL Hgb (12.0-15.0) g/dL Hct (37.2-46.3) % MCH (27.0-32.0) pg MCHC (32.0-37.0) g/dL RDW (11.5-14.5) % Immature Gran # (0.00-0.04) X 10*3/uL Neutrophils # (1.80-7.70) X 10*3/uL Eosinophils # (0.04-0.35) X 10*3/uL Potassium 3.4 L (3.5-5.1) mmol/L Chloride 110 H (98-107) mmol/L BUN 20 H (7-17) mg/dL Glucose 105 H (70-110) mg/dL Calcium 7.8 L (8.7-10.3) mg/dL Total Bilirubin (0.30-1.20) mg/dL Total Protein (6.2-8.2) g/dL Albumin (3.8-4.9) g/dL Albumin/Globulin Ratio (1.60-3.17) g/dL Microbiology - Last 24 Hours (Table) 10/01/21 11:45 Blood Culture - Preliminary Blood No Growth after 24 hours 10/01/21 11:30 Blood Culture - Preliminary Blood No Growth after 24 hours 10/01/21 11:10 Urine Culture - Preliminary Urine,Voided Gram Neg Bacilli Assessment and Plan (1) Acute appendicitis Current Visit: Yes Status: Acute Code(s): K35.80 - UNSPECIFIED ACUTE APPENDICITIS SNOMED Code(s): 45978639 (2) Urinary tract infection Current Visit: Yes Status: Acute Code(s): N39.0 - URINARY TRACT INFECTION, SITE NOT SPECIFIED SNOMED Code(s): 92783079 (3) Medication reaction Current Visit: Yes Status: Acute Code(s): T50.905A - ADVERSE EFFECT OF UNSP DRUG/MEDS/BIOL SUBST, INIT SNOMED Code(s): 63141256 (4) COPD (chronic obstructive pulmonary disease) Current Visit: Yes Status: Acute Code(s): J44.9 - CHRONIC OBSTRUCTIVE PU LMONARY DISEASE, UNSPECIFIED SNOMED Code(s): 62117099 (5) Diabetes Current Visit: Yes Status: Acute Code(s): E11.9 - TYPE 2 DIABETES MELLITUS WITHOUT COMPLICATIONS SNOMED Code(s): 75703976 (6) History of CVA (cerebrovascular accident) Current Visit: Yes Status: Acute Code(s): Z86.73 - PRSNL HX OF TIA (TIA), AND CEREB INFRC W/O RESID DEFICITS SNOMED Code(s): 693459690 (7) GERD (gastroesophageal reflux disease) Current Visit: Yes Status: Acute Code(s): K21.9 - GASTRO-ESOPHAGEAL REFLUX DISEASE WITHOUT ESOPHAGITIS SNOMED Code(s): 795753312 Plan: Culture and sensitivity on the urine is still pending. If that is finalized today, we can decide on oral antibiotic treatment the appendicitis and urinary tract infection. We went over postoperative instructions. She'll be empirically started on omeprazole because of GERD and dark stool prior to admission. We'll discuss possible endoscopy when I see her for her postop check.
[2021-10-03 11:48] LABS: Glucose,Whole Blood 99 mg/dL (70-110)
[2021-10-03] MEDS ORDERED: POTASSIUM CHLORIDE ER 20 MEQ TAB.ER PO STA (12:39)
[2021-10-03] MEDS ORDERED: LEVOFLOXACIN 250MG-D5W PMX 250 MG in DEXTROSE/WATER 1 50ML.BAG IVPB SCH (15:00)
[2021-10-03 16:49] LABS: Glucose,Whole Blood 95 mg/dL (70-110)
--- NOTE | 2021-10-03 16:49 | P.PN ---
Progress Note - Text Progress Note Date: 10/03/21 - Chief Complaint Abdominal pain Hospital course This is a very pleasant 71-year-old patient who follows Dr. Deng. Chronic stable medical conditions include asthma, diabetes, GERD, hyperlipidemia. Patient has a sister in the room with her. 4 days ago had gone out to eat. That night patient started having nausea vomiting and diarrhea. Following day patient developed pain in the right lower quadrant. Also had a very dark color stool. The next day again patient had a dark color stool. No fever and chills. Presented to the ER. Computed tomography scan of the abdomen showed a distended taken appendix with appendicoliths. Patient yesterday underwent laparoscopic appendectomy was discovered to have appendicitis with early gangrene. Today patient sitting at the side of the bed. Some abdominal pain is present. Was on a liquid diet. Because patient had dark stools. H&H followed. Some drop in hemoglobin. PPI added. Discussed the Dr. Arnett. About EGD. She will decide the timing of the same. October 03: Diet advanced. Had a bowel movement this morning. Brown BM. Did walk in the hallway. Cultures pending. On IV antibiotics. Active Medications Acetaminophen (Acetaminophen Tab 325 Mg Tab) 650 mg PO Q6HR PRN PRN Reason: Mild Pain or Fever > 100.5 Hydrocodone Bitart/Acetaminophen (Hydrocodone/Apap 5-325mg 1 Each Tab) 1 each PO Q4HR PRN PRN Reason: Mild Pain Last Admin: 10/03/21 07:03 Dose: 1 each Atorvastatin Calcium (Atorvastatin 20 Mg Tab) 80 mg PO DAILY LEELA Last Admin: 10/03/21 07:04 Dose: 80 mg Budesonide/Formoterol Fumarate (Symbicort 160-4.5 Mcg Inhaler) 2 puff INHA LATION RT-Q12H LEELA Last Admin: 10/03/21 08:40 Dose: 2 puff Heparin Sodium (Porcine) (Heparin Sodium,Porcine/Pf 5,000 Unit/0.5 Ml Syringe) 5,000 unit SQ Q12HR LEELA Last Admin: 10/03/21 07:04 Dose: 5,000 unit Cefoxitin Sodium 2 gm/ Sodium (Chloride) 100 mls @ 200 mls/hr IVPB Q8H [facility]; Protocol Last Admin: 10/03/21 13:04 Dose: 200 mls/hr Metronidazole 500 mg/ IV (Solution) 100 mls @ 100 mls/hr IVPB Q8H [facility]; Protocol Last Admin: 10/03/21 11:09 Dose: 100 mls/hr Levofloxacin/Dextrose 250 mg/ (IV Solution) 50 mls @ 50 mls/hr IVPB Q24H [facility]ELA Last Admin: 10/03/21 14:14 Dose: 50 mls/hr Morphine Sulfate (Morphine Sulfate 4 Mg/Ml Syringe) 4 mg IV Q4HR PRN PRN Reason: Severe Pain Last Admin: 10/03/21 02:25 Dose: 4 mg Naloxone HCl (Naloxone 0.4 Mg/Ml 1 Ml Vial) 0.2 mg IV Q2M PRN PRN Reason: Opioid Reversal Ondansetron HCl (Ondansetron 4 Mg/2 Ml Vial) 4 mg IVP Q8HR PRN PRN Reason: Nausea And Vomiting Last Admin: 10/01/21 23:28 Dose: 4 mg Pantoprazole Sodium (Pantoprazole 40 Mg Tablet) 40 mg PO AC-BID [facility] Last Admin: 10/03/21 16:30 Dose: 40 mg Zolpidem Tartrate (Zolpidem 5 Mg Tab) 2.5 mg PO HS [facility] Last Admin: 10/02/21 21:29 Dose: 2.5 mg Past medical history to include: Asthma, diabetes, GERD, hyperlipidemia, arthritis Social history: Patient smoked a pack a day for 40 years stopped a year ago. Mr. . No alcohol. Retired principal software architect. Family history: Reviewed, noncontributory to presentation Physical examination: VITAL SIGNS: 97.9, 67, 22, 122/70, 95% room air GENERAL: Laying in bed, comfortable EYES: Pupils equal. Conjunctiva normal. HEENT: External appearance of nose and ears normal, oral cavity grossly normal. NECK: JVD not raised; masses not palpable. HEART: First and second heart sounds are normal; no edema. LUNGS: Respiratory rate normal; clear to auscultation. ABDOMEN: Soft, minimal tenderness, no guarding rigidity, liver spleen not palpable, no masses palpable. PSYCH: Alert and oriented x3; mood and affect normal. MUSCULOSKELETAL:No Clubbing/cyanosis;muscles-grossly intact, evidence of OA INVESTIGATIONS, reviewed in the clinical context: October 03: White count 8.4 hemoglobin 11 potassium 3.4 creatinine 0.91 White count 16.3 hemoglobin 13.2 platelets 276 sodium 138 progression 3.5 BUN 17 creatinine 0.81 UA positive for leukoesterase, WBC Computed tomography scan abdomen: Evidence of appendicitis/appendicolith. Diverticulosis Assessment and plan: -Acute appendicitis with early gangrene Laparoscopic appendectomy on October [address] Arnett. IV cefoxitin, IV Flagyl -Patient had 2 episodes of dark stools. Hemoglobin is also drop. Patient has a significant history of GERD. Patient will need EGD. Discussed the Dr. Arnett. EGD as per Dr. Arnett. PPI -Acute anemia from blood loss from GI bleed Follow H&H -Acute UTI with cystitis. Awaiting cultures On antibiotics -Obesity BMI 38.6 Weight loss measures -Hyperlipidemia Zocor 80 mg daily at bedtime -Moderate persistent asthma Symbicort 1604.52 puffs twice a day -GERD significant PPI Continue IV cefoxitin, IV Flagyl. Diet advanced regular. Awaiting urine cultures. Thank you Dr. Arnett
[2021-10-03 18:11] VITALS: RESP 16
[2021-10-03 20:36] LABS: Glucose,Whole Blood 106 mg/dL (70-110)
[2021-10-03] MEDS: ZOLPIDEM 5 MG TAB PO SCH (21:06)
[2021-10-04 03:15] VITALS: TEMP 97.9
[2021-10-04] MEDS: metroNIDAZOLE-NS PMX 500 MG in SALINE 1 100ML.BAG IVPB SCH ×2 (04:40→11:04)
[2021-10-04 05:21] LABS: Basophils % (A) 1 %; Eosinophils # (A) 0.2 k/uL (0-0.7); Eosinophils % (A) 3 %; HGB 10.6 gm/dL (11.4-16.0); Hypochromasia Marked; Lymphocytes % (A) 20 %; MCH 27.8 pg (25.0-35.0); MCV 89.6 fL (80.0-100.0); Mean Platelet Volume 7.5; Monocytes # (A) 0.4 k/uL (0-1.0); Monocytes % (A) 7 %; Neutrophils # (A) 3.5 k/uL (1.3-7.7); Neutrophils % (A) 66 %; Platelet Count 283 k/uL (150-450); RDW 14.5 % (11.5-15.5); WBC 5.3 k/uL (3.8-10.6)
[2021-10-04 05:47] LABS: African American GFR (CKD) >90 (>60 ml/min/1.73 sqM); Anion Gap 6 mmol/L; Blood Urea Nitrogen 14 mg/dL (7-17); Calcium 7.8 mg/dL (8.4-10.2); Carbon Dioxide 23 mmol/L (22-30); Chloride 111 mmol/L (98-107); Glucose 93 mg/dL (74-99); Non-African American GFR(CKD) 87 (>60 ml/min/1.73 sqM); Potassium 3.7 mmol/L (3.5-5.1); Sodium 140 mmol/L (137-145)
[2021-10-04 06:52] LABS: Glucose,Whole Blood 104 mg/dL (70-110)
[2021-10-04 07:24] VITALS: BP 136/78; PULSE 72
[2021-10-04] MEDS: SYMBICORT 160-4.5 MCG INHALER INHALATION SCH (08:49)
[2021-10-04] MEDS: HEPARIN SODIUM,PORCINE/PF 5,000 UNIT/0.5 ML SYRINGE SQ SCH (09:22)
[2021-10-04] MEDS: PANTOPRAZOLE 40 MG TABLET PO SCH (09:23)
[2021-10-04] MEDS: ATORVASTATIN 20 MG TAB PO SCH (09:24)
[2021-10-04 11:49] LABS: Glucose,Whole Blood 93 mg/dL (70-110)
--- NOTE | 2021-10-04 12:12 | CDI ---
Documentation Clarification Form Date: 10/04/2021 11:36:36 AM From: Yoon Gray RN CCDS Admit Date: 10/04/2021 07:53:00 AM Patient Name: Ebony Chaney Visit Number: [id number] Discharge Date: ATTENTION: The Clinical Documentation Specialists (CDI) and [facility] Coding Staff appreciate your assistance in clarifying documentation. Please respond to the clarification below the line at the bottom and electronically sign. The CDI & [facility] Coding staff will review the response and follow-up if needed. Please note: Queries are made part of the Legal Health Record. If you have any questions, please contact the author of this message via ITS. Dr. Jacquelyn Arnett The patient presented with the following clinical indicators. Additional clarification regarding the etiology/cause of the clinical indicators is requested. History/Risk Factors: 71-year-old female presents to the ED with nausea vomiting and diarrhea with pain to the right lower quadrant. Medical History: Asthma, Gerd and HLD. Clinical Indicators: WBC 10/01: 16.3 Neutrophils 10/01: 13.4 Urine cultures 10/01: Escherichia coli Vitals signs: B/P 148/72; HR 106; Temp 98.2 F Oral; RR 18; SpO2 95% ra Surgical progress note 10/02: There was quite a bit of of localized peritonitis along with a gangrenous change in the appendix. Treatment: Antibiotics: 10/01 current Metronidazole 500mg IVPB Q8H; 10/01 to current Cefoxitin Sodium 2gm IVPB Q8H; Levofloxacin 500mg IVPB Q24H IV Bolus:10/01 0.9 NS 500cc IV Bolus x 1 In your professional opinion, please clarify if these findings signify one of the following conditions: [ ] Sepsis POA [ ] Sepsis ruled out [x ] Other, please specify ___Acute appendicitis with early gangrene and urinary tract infection [ ] Unable to determine SIRS Criteria: 2 or more of the following may indicate SIRS -Temperature < 96.8F (36C) or > 101.0F (38.3C) -Heart Rate > 90 bpm -Respiratory Rate > 20 breaths/min or PaCO2 < 32 mmHg -White Blood Cell Count > 12,000 or < 4,000 cells/mm3 or > 10% bands (Template Last Reviewed: May 2020) MORIAH
--- NOTE | 2021-10-04 15:22 | P.DS ---
Providers Date of admission: 10/04/21 07:53 Expected date of discharge: 10/04/21 Attending physician: Jacquelyn Arnett Consults: 10/01/21 13:38 Consult Physician Routine Consulting Provider: Nikolay Alas Consult Reason/Comments: medical management Do you want consulting provider notified?: Yes Primary care physician: Leonard Deng - Discharge Diagnosis(es) (1) Acute appendicitis Status: Acute (2) Urinary tract infection Status: Acute (3) Medication reaction Status: Acute (4) COPD (chronic obstructive pulmonary disease) Status: Acute (5) Diabetes Status: Acute (6) History of CVA (cerebrovascular accident) Status: Acute (7) GERD (gastroesophageal reflux disease) Status: Acute Hospital Course: The patient is a 71-year-old female who presented to the ER with abdominal pain of several days duration. Work-up in the ER showed acute appendicitis. She was taken to the OR where she underwent a laparoscopic appendectomy. There is acute appendicitis with some early gangrenous changes and phlegmon. She was kept on IV antibiotics. The UA from the ER was suggestive of urinary tract infection. She was kept in the hospital on IV antibiotics until we can determine appropriate antibiotic treatment. By 10-04 she was tolerating a diet, was having bowel movements, mild pain and felt to be stable for discharge Patient Condition at Discharge: Good Plan - Discharge Summary Discharge Rx Participant: Yes New Discharge Prescriptions: New Omeprazole 20 mg PO AC-BRKFST #30 tab Atorvastatin Calcium [Lipitor] 80 mg PO DAILY #30 tablet Acetaminophen Tab [Tylenol] 650 mg PO Q6HR PRN tab PRN Reason: Mild Pain Or Fever > 100.5 Sulfamethox-Tmp 800-160Mg [Bactrim DS 800-160 mg] 1 tab PO Q12HR #14 tab Continue Budesonide-Formot 160-4.5 Mcg [Symbicort 160-4.5 Mcg Inhaler] 2 puff INHALATION RT-Q12H Discontinued Simvastatin [Zocor] 80 mg PO HS Discharge Medication List Budesonide-Formot 160-4.5 Mcg [Symbicort 160-4.5 Mcg Inhaler] 2 puff INHALATION RT-Q12H 10/01/21 [History] Omeprazole 20 mg PO AC-BRKFST #30 tab 10/03/21 [Rx] Acetaminophen Tab [Tylenol] 650 mg PO Q6HR PRN tab 10/04/21 [Rx] Atorvastatin Calcium [Lipitor] 80 mg PO DAILY #30 tablet 10/04/21 [Rx] Sulfamethox-Tmp 800-160Mg [Bactrim DS 800-160 mg] 1 tab PO Q12HR #14 tab 10/04/21 [Rx] Follow up Appointment(s)/Referral(s): Jacquelyn Arnett DO [Doctor of Osteopathic Medicine] - 10/13/21 9:30 am Leonard Deng DO [Primary Care Provider] - 1-2 days (Office put you on a cancellation list and will call you as soon as an appointment becomes available. ) [facility] Visiting Nurse, [NON-STAFF] - As Needed Patient Instructions/Handouts: Laparoscopic Appendectomy (DC) Activity/Diet/Wound Care/Special Instructions: You may shower. No tub baths for 1 week. Cover the lower incision with gauze. Eat Yogurt or take a probiotic 1-2 times a day while you are taking the antibiotic. If you develop fever, chills, nausea or vomiting, recurrent abdominal pain call or go to the ER Discharge Disposition: HOME SELF-CARE
--- NOTE | 2021-10-04 15:50 | P.PN ---
Progress Note - Text Progress Note Date: 10/04/21 - Chief Complaint Abdominal pain Hospital course This is a very pleasant 71-year-old patient who follows Dr. Deng. Chronic stable medical conditions include asthma, diabetes, GERD, hyperlipidemia. Patient has a sister in the room with her. 4 days ago had gone out to eat. That night patient started having nausea vomiting and diarrhea. Following day patient developed pain in the right lower quadrant. Also had a very dark color stool. The next day again patient had a dark color stool. No fever and chills. Presented to the ER. Computed tomography scan of the abdomen showed a distended taken appendix with appendicoliths. Patient yesterday underwent laparoscopic appendectomy was discovered to have appendicitis with early gangrene. Today patient sitting at the side of the bed. Some abdominal pain is present. Was on a liquid diet. Because patient had dark stools. H&H followed. Some drop in hemoglobin. PPI added. Discussed the Dr. Arnett. About EGD. She will decide the timing of the same. October 03: Diet advanced. Had a bowel movement this morning. Brown BM. Did walk in the hallway. Cultures pending. On IV antibiotics. October 04: Cardiac diet. Feeling well. Up and about. No fever no chills. Patient follow-up in Dr. Arnett outpatient for EGD. Care was discussed the patient. Questions answered. Current medications reviewed Past medical history to include: Asthma, diabetes, GERD, hyperlipidemia, arthritis Social history: Patient smoked a pack a day for 40 years stopped a year ago. 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 Family history: Reviewed, noncontributory to presentation Physical examination: VITAL SIGNS: 97.9, 72, 16, 136.78, 96% room air GENERAL: Sitting on edge of the bed, comfortable EYES: Pupils equal. Conjunctiva normal. HEENT: External appearance of nose and ears normal, oral cavity grossly normal. NECK: JVD not raised; masses not palpable. HEART: First and second heart sounds are normal; no edema. LUNGS: Respiratory rate normal; clear to auscultation. ABDOMEN: Soft, minimal tenderness, no guarding rigidity, liver spleen not palpable, no masses palpable. PSYCH: Alert and oriented x3; mood and affect normal. MUSCULOSKELETAL:No Clubbing/cyanosis;muscles-grossly intact, evidence of OA INVESTIGATIONS, reviewed in the clinical context: October 04: Hemoglobin 10.6 potassium 3.7 creatinine 0.7 White count 16.3 hemoglobin 13.2 platelets 276 sodium 138 progression 3.5 BUN 17 creatinine 0.81 UA positive for leukoesterase, WBC Computed tomography scan abdomen: Evidence of appendicitis/appendicolith. Diverticulosis Assessment and plan: -Acute appendicitis with early gangrene Laparoscopic appendectomy on October [address] Arnett. IV cefoxitin, IV Flagyl -Patient had 2 episodes of dark stools. Hemoglobin is also drop. Patient has a significant history of GERD. Patient will need EGD. Discussed the Dr. Arnett. EGD as per Dr. Arnett. PPI -Acute anemia from blood loss from GI bleed Outpatient EGD by Dr. Arnett -Acute UTI with cystitis. E. coli On antibiotics -Obesity BMI 38.6 Weight loss measures -Hyperlipidemia Zocor 80 mg daily at bedtime -Moderate persistent asthma Symbicort 1604.52 puffs twice a day -GERD significant PPI Currently on IV cefoxitin, IV Flagyl. Tolerating diet. DC antibiotics per Dr. Arnett. Discussed with patient. Follow up with Dr. Deng.. Thank you Dr. Arnett
== END 2021-10-04 13:52 | disposition home or self-care (01) | DRG 342 ==
LOC: EC 08:44 → 4SSUR 11:33 → OBSVTOIN 10-04 07:53
PROVIDERS: ADMIT Surgery; ATTEND Surgery
PROC: 0DTJ4ZZ Resection of Appendix, Percutaneous Endoscopic Approach (ICD-10-PCS; principal; 2021-10-01 11:58)
DX: K35.31 Acute appendicitis with localized peritonitis and gangrene, without perforation (principal); D62 Acute posthemorrhagic anemia; K92.2 Gastrointestinal hemorrhage, unspecified; E11.9 Type 2 diabetes mellitus without complications; E66.9 Obesity, unspecified; Z68.38 Body mass index [BMI] 38.0-38.9, adult; E78.5 Hyperlipidemia, unspecified; F41.0 Panic disorder [episodic paroxysmal anxiety]; J44.9 Chronic obstructive pulmonary disease, unspecified; B96.20 Unspecified Escherichia coli [E. coli] as the cause of diseases classified elsewhere; J45.40 Moderate persistent asthma, uncomplicated; K21.00 Gastro-esophageal reflux disease with esophagitis, without bleeding; M19.90 Unspecified osteoarthritis, unspecified site; N30.90 Cystitis, unspecified without hematuria; Z79.51 Long term (current) use of inhaled steroids; Z79.899 Other long term (current) drug therapy; Z86.73 Personal history of transient ischemic attack (TIA), and cerebral infarction without residual deficits; Z87.891 Personal history of nicotine dependence; Z90.710 Acquired absence of both cervix and uterus
CPT/HCPCS: 36415; 71046; 74177; 80048; 80053; 81001; 82150; 82272; 83605; 83690; 85025; 85610; 85730; 87040; 87077; 87086; 87186; 88304; 93005; 94640; 94760; 96361; 96374; 96375; 99285

== ENCOUNTER 2021-10-23 08:09 | Emergency (ER) | payer MEDICARE ==
[2021-10-23 08:25] VITALS: TEMP 98.4
--- NOTE | 2021-10-23 08:39 | ED ---
General Adult HPI - General Chief complaint: Extremity Problem,Nontraumatic Stated complaint: Right arm pain Time Seen by Provider: 10/23/21 08:26 Source: patient, RN notes reviewed Mode of arrival: ambulatory Limitations: no limitations - History of Present Illness Initial comments: Patient is a pleasant 71-year-old female presenting to the emergency Department with right arm discomfort. Patient did have her appendix removed around 3 weeks ago. Patient did have an IV in her right hand. Patient has discomfort and swelling since that time. Discomfort remains. Swelling is slightly improved. Area involved starts where the IV site was and does extend up the arm. No chest pain. No dyspnea. No history of similar symptoms previously. - Related Data Home Medications Medication Instructions Recorded Confirmed Budesonide-Formot 160-4.5 Mcg 2 puff INHALATION RT-Q12H 10/01/21 10/01/21 [Symbicort 160-4.5 Mcg Inhaler] Previous Rx's Medication Instructions Recorded Omeprazole 20 mg PO AC-BRKFST #30 tab 10/03/21 Acetaminophen Tab [Tylenol] 650 mg PO Q6HR PRN tab 10/04/21 Atorvastatin Calcium [Lipitor] 80 mg PO DAILY #30 tablet 10/04/21 Sulfamethox-Tmp 800-160Mg [Bactrim 1 tab PO Q12HR #14 tab 10/04/21 DS 800-160 mg] Cephalexin [Keflex] 500 mg PO QID #28 cap 10/23/21 Allergies Allergy/AdvReac Type Severity Reaction Status Date / Time amoxicillin trihydrate AdvReac Diarrhea Verified 10/23/21 08:25 [From Augmentin] potassium clavulanate AdvReac Diarrhea Verified 10/23/21 08:25 [From Augmentin] Review of Systems ROS Statement: Those systems with pertinent positive or pertinent negative responses have been documented in the HPI. ROS Other: All systems not noted in ROS Statement are negative. Constitutional: Denies: fever Eyes: Denies: eye pain ENT: Denies: ear pain Respiratory: Denies: cough, dyspnea Cardiovascular: Reports: as per HPI. Denies: chest pain Endocrine: Denies: fatigue Gastrointestinal: Denies: abdominal pain Genitourinary: Denies: dysuria Musculoskeletal: Reports: as per HPI. Denies: back pain Skin: Denies: lesions Neurological: Denies: weakness Past Medical History Past Medical History: Asthma, CVA/TIA, Diabetes Mellitus, GERD/Reflux, Hyperlipidemia History of Any Multi-Drug Resistant Organisms: None Reported Past Surgical History: Cholecystectomy, Hysterectomy Past Anesthesia/Blood Transfusion Reactions: No Reported Reaction Past Psychological History: No Psychological Hx Reported Smoking Status: Former smoker Past Alcohol Use History: None Reported Past Drug Use History: None Reported General Exam Limitations: no limitations General appearance: alert, in no apparent distress Head exam: Present: normocephalic Eye exam: Present: normal appearance Neck exam: Present: normal inspection Respiratory exam: Present: normal lung sounds bilaterally Cardiovascular Exam: Present: regular rate, normal rhythm Expanded Peripheral pulses: 2+: Radial (R) Extremities exam: Present: other (Right arm with mild swelling and discomfort near the IV site dorsal hand and forearm.). Absent: pedal edema, calf tenderness Neurological exam: Present: alert. Absent: motor sensory deficit Psychiatric exam: Present: normal affect, normal mood Skin exam: Present: normal color Course Vital Signs 10/23/21 08:23 Temperature 98.4 F Pulse Rate 60 Respiratory 18 Rate Blood Pressure 146/73 O2 Sat by Pulse 96 Oximetry Medical Decision Making - Medical Decision Making Patient reevaluated. Thaddeus wrap placed. Patient recommended anti-inflammatories and follow-up primary care physician in the next couple of days. Patient advised to return if symptoms worsen. Patient will also be provided antibiotics for possibility of early infection. - Radiology Data Radiology results: report reviewed (Ultrasound does not reveal acute) Disposition Clinical Impression: Superficial thrombophlebitis of arm Disposition: HOME SELF-CARE Condition: Stable Instructions (If sedation given, give patient instructions): Superficial Thrombophlebitis (ED) Additional Instructions: Continue baby aspirin. [id number] Motrin as needed. Prescription for anabiotic has been sent to pharmacy. Please follow-up with primary care physician within the next 2 days for recheck. Return for increased pain, swelling, redness, fever or chest pain or shortness of breath, worsening symptoms or any other concerns. Warm compresses as needed. Prescriptions: Cephalexin [Keflex] 500 mg PO QID #28 cap Is patient prescribed a controlled substance at d/c from ED?: No Referrals: Leonard Deng DO [Primary Care Provider] - 1-2 days Time of Disposition: 10:11
--- NOTE | 2021-10-23 09:51 | US ---
EXAMINATION TYPE: US venous doppler duplex UE RT DATE OF EXAM: 10/23/2021 COMPARISON: NONE CLINICAL HISTORY: Pain and swelling post IV. SIDE PERFORMED: Right IJV, subclavian, axillary, brachial, basilic, cephalic, radial , and ulnar veins interrogated. Right Arm: Negative for DVT Grayscale, color doppler, spectral doppler imaging performed of the deep veins of the right upper ext remity. There is normal flow, compressibility and vascular waveforms. IMPRESSION: No ultrasound evidence for acute deep or superficial venous thrombosis in the right upper extremity.
[2021-10-23] MEDS ORDERED: CEPHALEXIN 500MG STARTER PACK 4 CAP BTL PO STA (10:12)
[2021-10-23] MEDS ORDERED: traMADol 50 MG STARTER PACK 3 TAB BTL PO STA (10:12)
[2021-10-23 10:24] VITALS: BP 147/74; PULSE 61; RESP 16
== END 2021-10-23 10:26 | disposition home or self-care (01) ==
LOC: EC 08:09
DX: I80.8 Phlebitis and thrombophlebitis of other sites (principal); E11.9 Type 2 diabetes mellitus without complications; E78.5 Hyperlipidemia, unspecified; K21.9 Gastro-esophageal reflux disease without esophagitis; J45.909 Unspecified asthma, uncomplicated; Z87.891 Personal history of nicotine dependence; Z86.73 Personal history of transient ischemic attack (TIA), and cerebral infarction without residual deficits; Z79.51 Long term (current) use of inhaled steroids; Z79.899 Other long term (current) drug therapy
CPT/HCPCS: 99283

== ENCOUNTER → 2021-11-14 | Outpatient (CLI) | payer MEDICARE ==
--- NOTE | 2021-11-14 14:59 | US ---
EXAMINATION TYPE: US venous doppler duplex LE LT DATE OF EXAM: 11/14/2021 1:58 PM COMPARISON: NONE CLINICAL HISTORY: R35.0 Frequency of Micturition R60.0 edema. Swelling in left leg SIDE PERFORMED: Left TECHNIQUE: The lower extremity deep venous system is examined utilizing real time linear array sonog shahla with graded compression, doppler sonography and color-flow sonography. VESSELS IMAGED: Common Femoral Vein Deep Femoral Vein Greater Saphenous Vein * Femoral Vein Popliteal Vein Small Saphenous Vein * Proximal Calf Veins (* superficial vessels) Left Leg: Negative for DVT Grayscale, color doppler, spectral doppler imaging performed of the deep veins of the left lower extr emity. There is normal flow, compressibility, vascular waveforms. IMPRESSION: No ultrasound evidence for acute DVT in the left lower extremity.
--- NOTE | 2021-11-14 15:19 | US ---
EXAMINATION TYPE: US bladder DATE OF EXAM: 11/14/2021 COMPARISON: CT abdomen and pelvis October 01, 2021 CLINICAL HISTORY: R35.0 Frequency of Micturition R60.0 edema. Increased urination TECHNIQUE: Multiple sonographic images of the bladder are obtained. FINDINGS: EXAM MEASUREMENTS: Post Void Residual Volume: 38 mL Color Doppler performed to assess ureteral jets. Bilateral Jets seen: yes Normal Post Void Residual (less than 50ml): yes IMPRESSION: Bladder ultrasound study within normal limits.
== END | disposition home or self-care (01) ==
LOC: RADUSWWP 13:28
PROVIDERS: ATTEND Family Medicine
DX: R35.0 Frequency of micturition (principal); R60.0 Localized edema
CPT/HCPCS: 76857

== ENCOUNTER → 2022-02-09 | Outpatient (CLI) | payer MEDICARE ==
--- NOTE | 2022-02-09 16:54 | US ---
EXAMINATION TYPE: US pelvic complete DATE OF EXAM: 02/09/2022 COMPARISON: None CLINICAL HISTORY: 71-year-old female R10.2 pelvic perineal. Right pelvic pain since having appendix removed 4 months ago, hysterectomy and left oophorectomy 1996 TECHNIQUE: Transabdominal sonographic images of the pelvis were acquired. Date of LMP: 1996 EXAM MEASUREMENTS: Right Ovary: 3.6 x 3.2 x 2.5 cm for a volume of 14.7 mL. 1. Uterus: surgically absent 2. Endometrium: surgically absent 3. Right Ovary: wnl 4. Left Ovary: surgically absent 5. Bilateral Adnexa: wnl 6. Posterior cul-de-sac: wnl IMPRESSION: Status post hysterectomy and left salpingo-oophorectomy. Right ovary is slightly prominent in size fo r a postmenopausal female with a volume of nearly 15 mL. However, no discrete mass is identified. Con internal medicine physician short interval follow-up to reassess.
--- NOTE | 2022-02-09 16:58 | US ---
EXAMINATION TYPE: US groin RT DATE OF EXAM: 02/09/2022 COMPARISON: CT 10/01/2021 CLINICAL HISTORY: 71-year-old female R10.2 pelvic, perineal. RLQ/pelvic pain since having appendix r emoved 4 months ago TECHNIQUE: Targeted ultrasound along the site of patient's pain along the right lower quadrant and ri ght-sided pelvis. FINDINGS: Campaign Marketing Manager notes: RLQ area of pain: appears wnl IMPRESSION: Ultrasound targeted to the site of patient's pain along the right lower quadrant shows no discrete ab normality of the superficial soft tissues.
== END | disposition home or self-care (01) ==
LOC: RADUSWWP 14:02
PROVIDERS: ATTEND Family Medicine
DX: R10.2 Pelvic and perineal pain (principal); Z90.710 Acquired absence of both cervix and uterus
CPT/HCPCS: 76856

== ENCOUNTER → 2022-05-09 | Outpatient (CLI) | payer MEDICARE ==
--- NOTE | 2022-05-10 09:36 | MM ---
Reason for Exam: Screening (asymptomatic). Last mammogram was performed 2 year(s) and 0 month(s) ago. Patient History: Menarche at age 13. First Full-Term at age 22. Right ovary removed at age 45. Hysterectomy at age 45. Postmenopausal. Core Biopsy on the Left side. Risk Values: Che 5 year model risk: 1.8%. NCI Lifetime model risk: 5.1%. Prior Study Comparison: 01/21/2014 Bilateral Screening Mammogram, [facility]. 11/01/2017 Bilateral Screening Mammogram, [facility]. 05/10/2020 Bilateral Screening Mammogram, [facility]. Tissue Density: There are scattered fibroglandular densities. Findings: Analyzed By CAD. There is no suspicious group of microcalcifications or new suspicious mass in either breast. Overall Assessment: Negative, BI-RAD 1 Management: Screening Mammogram of both breasts in 1 year. A clinical breast exam by your physician is recommended on an annual basis and results should be correlated with mammographic findings. Electronically signed and approved by: Kris Mccabe D.O.
== END | disposition home or self-care (01) ==
LOC: RADMAMWWP 09:47
PROVIDERS: ATTEND Family Medicine
DX: Z12.31 Encounter for screening mammogram for malignant neoplasm of breast (principal); Z78.0 Asymptomatic menopausal state; Z98.890 Other specified postprocedural states
CPT/HCPCS: 77063; 77067

== ENCOUNTER 2023-07-05 05:37 | Day surgery (SDC) | payer MEDICARE ==
[2023-07-03 16:02] VITALS: BMI 35.2
[2023-07-05] MEDS ORDERED: HEPARIN SODIUM,PORCINE (1 ML) 2,500 UNIT in SODIUM CHLORIDE 0.9% 250 ML IRRIGATION PRN (05:43)
[2023-07-05] MEDS ORDERED: NITROGLYCERIN SL TABS 0.4 MG TAB SUBLINGUAL PRN ×2 (05:43→13:22)
[2023-07-05] MEDS ORDERED: HEPARIN SODIUM,PORCINE 10,000 UNIT in SODIUM CHLORIDE 0.9% 1,000 ML IRRIGATION PRN (05:43)
[2023-07-05] MEDS ORDERED: ALPRAZolam 0.25 MG TAB PO PRN (05:43)
[2023-07-05] MEDS: SODIUM CHLORIDE 0.9% 1,000 ML IV ONE (06:27)
[2023-07-05] MEDS: ASPIRIN 325 MG TAB PO STA (06:42)
[2023-07-05] MEDS: ATORVASTATIN 80 MG TAB PO STA (06:42)
[2023-07-05] MEDS: SODIUM CHLORIDE 0.9% 1,000 ML in EMPTY BAG 1 BAG IV SCH ×2 (06:43→17:39)
[2023-07-05] MEDS: ALPRAZolam 0.5 MG TAB PO PRN (06:43)
[2023-07-05 06:47] VITALS: RESP 16
[2023-07-05 06:54] LABS: African American GFR (CKD) >90 (>60 ml/min/1.73 sqM); Anion Gap 7 mmol/L; Blood Urea Nitrogen 19 mg/dL (7-17); Calcium 9.6 mg/dL (8.4-10.2); Carbon Dioxide 29 mmol/L (22-30); Chloride 107 mmol/L (98-107); Glucose 117 mg/dL (74-99); Non-African American GFR(CKD) 81 (>60 ml/min/1.73 sqM); Potassium 4.1 mmol/L (3.5-5.1); Sodium 143 mmol/L (137-145)
[2023-07-05 07:07] LABS: Basophils # (A) 0.1 k/uL (0-0.2); Basophils % (A) 1 %; Eosinophils # (A) 0.3 k/uL (0-0.7); Eosinophils % (A) 4 %; HCT 40.2 % (34.0-46.0); HGB 12.5 gm/dL (11.4-16.0); Hypochromasia Moderate; Lymphocytes # (A) 2.4 k/uL (1.0-4.8); Lymphocytes % (A) 30 %; MCH 27.5 pg (25.0-35.0); MCV 88.8 fL (80.0-100.0); Mean Platelet Volume 8.1; Monocytes # (A) 0.5 k/uL (0-1.0); Monocytes % (A) 6 %; Neutrophils # (A) 4.6 k/uL (1.3-7.7); Neutrophils % (A) 57 %; Platelet Count 361 k/uL (150-450); RBC 4.52 m/uL (3.80-5.40); RDW 14.3 % (11.5-15.5)
[2023-07-05] MEDS ORDERED: fentaNYL (PF) 50 MCG/ML 2 ML AMP ONE ×2 (07:27→12:20)
[2023-07-05] MEDS: LIDOCAINE 1% INJ 10MG/ML (30 ML VIAL-PF) SQ ONE ×2 (07:35→12:44)
[2023-07-05] MEDS: fentaNYL (PF) 50 MCG/1 ML VIAL IVP ONE ×3 (07:37→12:40)
[2023-07-05] MEDS: MIDAZOLAM 2 MG/2 ML VIAL IVP ONE ×3 (07:37→12:42)
[2023-07-05] MEDS: HEPARIN SODIUM 1,000 UN/ML (10ML VL) IVP ONE ×2 (07:39→12:45)
[2023-07-05] MEDS: VERAPAMIL SYRINGE (5 MG/10 ML) INTRAARTER ONE ×2 (07:39→12:44)
--- NOTE | 2023-07-05 08:19 | LTR ---
Dear Avery: I performed cardiac catheterization on Ebony. A detailed catheterization note is enclosed for your records. In brief, cardiac catheterization revealed severe focal stenosis involving circumflex coronary artery, which probably explains her shortness of breath. The patient will undergo angioplasty with stent placement of the same. Thank you for giving me the privilege of participating in the care of this pleasant lady. ELEANOR / MAHI: [id number] /
--- NOTE | 2023-07-05 08:19 | CC ---
CARDIAC CATHETERIZATION REPORT INDICATION: Unstable angina. PROCEDURE NOTE: After obtaining informed consent, left heart catheterization and coronary angiogram were performed via the right radial artery using standard Mohan catheters. The patient tolerated the procedure well without any obvious immediate complications. The patient received conscious sedation. Total sedation time was 18 minutes. Right radial artery access was obtained using Seldinger technique, 6-St Helenian sheath was placed. Catheters and wires were floated into the ascending aorta under fluoroscopic guidance. The patient received verapamil and heparin per protocol. FINDINGS: 1. HEMODYNAMICS: Left ventricular end-diastolic pressure is 12 to 14 mm. There is no significant gradient across the aortic valve. 2. LEFT VENTRICULOGRAM: Left ventriculogram was not performed. 3. ANGIOGRAPHIC DATA: a.Right coronary artery: Right coronary artery is a large codominant vessel and is free of significant stenosis. b.Left main coronary artery is a normal-sized vessel and is free of stenosis. Divides into left anterior descending coronary artery and circumflex coronary artery. LAD and its branches appear calcified, but are free of significant stenosis. Circumflex coronary artery shows a focal 80% to 90% stenosis. CONCLUSIONS: 1. Calcified coronary arteries. 2. Focal 80% stenosis involving circumflex coronary artery. PLAN: The patient will undergo angioplasty with stent placement by Dr. Wiseman. MMODL / IJN: [id number] /
[2023-07-05] MEDS: IOPAMIDOL-370 100ML BTL INJ ONE ×2 (08:25→13:05)
[2023-07-05] MEDS: HEPARIN SOD,PORK IN 0.45% NACL 25,000 UNIT in 0.45% NACL 1 250ML.BAG IV SCH (09:10)
[2023-07-05] MEDS ORDERED: LIDOCAINE 1% INJ 10MG/ML (20 ML MDV) ONE (11:49)
[2023-07-05] MEDS ORDERED: VERAPAMIL 2.5 MG/ML 2 ML AMP ONE (11:49)
[2023-07-05] MEDS ORDERED: CLOPIDOGREL 75 MG TAB ONE (12:32)
[2023-07-05] MEDS: CLOPIDOGREL 75 MG TAB PO ONE ×2 (12:40→12:52)
[2023-07-05] MEDS: IV FLUID CONTINUATION 1,000 ML IV ONE (12:48)
[2023-07-05] MEDS: HEPARIN SODIUM 1,000 UN/ML (10ML VL) ONE (13:10)
[2023-07-05] MEDS ORDERED: ZOLPIDEM 5 MG TAB PO PRN (13:22)
[2023-07-05] MEDS ORDERED: MAG HYDROX/AL HYDROX/SIMETH 30 ML CUP PO PRN (13:22)
[2023-07-05] MEDS ORDERED: ATROPINE SULFATE 0.1 MG/ML 10ML SYRINGE IV PRN (13:22)
[2023-07-05] MEDS ORDERED: RX INFO: IV CONTRAST WAS GIVEN 1 EACH MISC MISCELLANE PRN (13:22)
--- NOTE | 2023-07-05 13:28 | P.CARDCATH ---
Date of Procedure: 07/05/23 Description of Procedure: PERCUTANEOUS TRANSLUMINAL CORONARY ANGIOPLASTY CLINICAL INFORMATION: The patient is a 73-year-old female who has been complaining of progressive dyspnea with a history of hypertension and hyperlipidemia. Underwent cardiac catheterization by Dr. Agustin and was found to have severe obstructive disease in the mid left circumflex. Recommendations were made regarding angioplasty and stenting. The procedure as well as the risks and the complications were discussed with the patient who was in full understanding and agreement. PROCEDURE: The 6 Somali radial sheath was exchanged over a guidewire. A 6 Somali CLS 3.5 guiding catheter was introduced into the system. After cannula ting the left main, a 0.014 BMW J wire was advanced across the lesion and positioned distally. Following that a 3.0 x 12 mm NC trek balloon was advanced and inflated at 8 atmosphere. After removing the balloon a Reonomy eye IVUS was advanced and imaging were obtained, following that a 4.5 x 18 mm Xience merlyn point stent was deployed. It was dilated at 16 semaj. After removing the balloon repeat IVUS imaging was performed and subsequently a 5.0 x 12 mm NC trek balloon was advanced and 2 inflation at 10 semaj were done. After the last inflation, after appropriate wait, the balloon and the guidewire were withdrawn back into the guiding catheter. Images were obtained and repeated. Those images reveal stable successful stenting. At that point, the guiding catheter, the balloon, and guidewire were removed. The sheath was removed. Hemostasis was obtained with deployment of a radial band. There were no immediate complications. The patient was returned to the room in stable condition. Of note, the patient received 9000 units of heparin as well as Plavix. His ACT was followed. There was no immediate complications. She had no chest discomfort but she had EKG changes that resolved at the end of the procedure RESULTS: Successful stenting of the mid left circumflex with reduction of stenosis from 90% to less than 5% with adjunctive intravascular ultrasound imaging. RECOMMENDATIONS: The patient will continue on aspirin and clopidogrel for 6 months without any interruption in addition to aggressive coronary risks modification, attempting to maintain LDL below 70 mg/dL. The findings and recommendations were discussed with the patient and the family, they are in full understanding and agreement. Duration of sedation: 29 minutes
[2023-07-06 03:09] VITALS: TEMP 98.1
[2023-07-06] MEDS: PANTOPRAZOLE 40 MG TABLET PO SCH (05:35)
[2023-07-06 08:22] LABS: African American GFR (CKD) >90 (>60 ml/min/1.73 sqM); Anion Gap 5 mmol/L; Blood Urea Nitrogen 17 mg/dL (7-17); Calcium 8.9 mg/dL (8.4-10.2); Carbon Dioxide 29 mmol/L (22-30); Chloride 105 mmol/L (98-107); Glucose 121 mg/dL (74-99); Non-African American GFR(CKD) 88 (>60 ml/min/1.73 sqM); Potassium 4.1 mmol/L (3.5-5.1); Sodium 139 mmol/L (137-145)
[2023-07-06 08:56] VITALS: BP 154/80; PULSE 88
--- NOTE | 2023-07-06 09:16 | DS ---
DISCHARGE SUMMARY PROCEDURES PERFORMED: Left heart catheterization and angioplasty of circumflex coronary artery. CONDITION: At the time of discharge, the patient is doing well. She is ambulating without any problems. PHYSICAL EXAMINATION: VITAL SIGNS: Stable. NECK: There is no jugular venous distention. CHEST: Reveals good air entry bilaterally. HEART: Reveals first and second heart sounds. No gallop. EXTREMITIES: Did not reveal any edema. Radial artery access site appears normal. EKG shows sinus rhythm, normal axis, normal intervals. DISCHARGE MEDICATIONS: Include, 1. Aspirin. 2. Plavix. 3. Imdur. 4. Toprol-XL 25 mg daily. 5. Omeprazole. 6. Simvastatin 80 mg daily. FOLLOWUP: She will be followed up in my office in a week's time. ELEANOR / MAHI: [id number] /
[2023-07-06] MEDS: CLOPIDOGREL 75 MG TAB PO SCH (09:18)
[2023-07-06] MEDS: ATORVASTATIN 40 MG TAB PO SCH (09:18)
[2023-07-06] MEDS: METOPROLOL SUCCINATE (ER) 25 MG TAB.ER.24H PO SCH (09:18)
[2023-07-06] MEDS: ASPIRIN 81 MG PO SCH (09:18)
== END 2023-07-06 09:42 | disposition home or self-care (01) ==
LOC: CATHCVL 05:37 → 6NMEDSUR 13:04 → CATHCVL 07-06 09:42
PROVIDERS: ATTEND Internal Medicine Cardiovascular Disease
DX: I25.110 Atherosclerotic heart disease of native coronary artery with unstable angina pectoris (principal); I10 Essential (primary) hypertension; E78.5 Hyperlipidemia, unspecified; K21.9 Gastro-esophageal reflux disease without esophagitis; Z87.891 Personal history of nicotine dependence; Z88.0 Allergy status to penicillin; Z88.8 Allergy status to other drugs, medicaments and biological substances; Z88.1 Allergy status to other antibiotic agents; Z79.02 Long term (current) use of antithrombotics/antiplatelets; Z79.82 Long term (current) use of aspirin; Z79.899 Other long term (current) drug therapy
CPT/HCPCS: 92978; 93458; 80048 ×2; 85025; 99152; 99153; C9600; C1769 ×4; C1887; C1894; C1753; C1874; C1725 ×2; J2250; J2001; J1644 ×2; Q9967; J3010

== ENCOUNTER → 2023-07-13 | Outpatient (CLI) | payer MEDICARE ==
--- NOTE | 2023-07-13 11:52 | MM ---
Reason for Exam: Screening (asymptomatic). Last mammogram was performed 1 year(s) and 2 month(s) ago. Patient History: Menarche at age 13. First Full-Term at age 22. Right ovary removed at age 45. Hysterectomy at age 45. Postmenopausal. Core Biopsy on the Left side. Risk Values: Ceh 5 year model risk: 1.9%. NCI Lifetime model risk: 4.6%. Prior Study Comparison: 11/01/2017 Bilateral Screening Mammogram, [facility]. 05/10/2020 Bilateral Screening Mammogram, [facility]. 05/09/2022 Bilateral MG 3D screening mammo w/cad, [facility]. Tissue Density: There are scattered areas of fibroglandular density. Findings: Analyzed By CAD. The pattern is symmetrical. Few scattered benign-appearing punctate calcifications are stable. No suspicious groups of microcalcifications, spiculated or lobular masses, architectural distortion or other secondary signs of malignancy are mammographically apparent. Overall Assessment: Benign, BI-RAD 2 Management: Screening Mammogram of both breasts in 1 year. A negative mammogram report should not preclude additional follow up of suspicious palpable abnormalities. Patient should continue monthly self breast exam. A clinical breast exam by your physician is recommended on an annual basis and results should be correlated with mammographic findings. Electronically signed and approved by: Leonard Elise D.O. Radiologis
== END | disposition home or self-care (01) ==
LOC: RADMAMWWP 10:01
PROVIDERS: ATTEND Family Medicine
DX: Z12.31 Encounter for screening mammogram for malignant neoplasm of breast (principal); Z78.0 Asymptomatic menopausal state
CPT/HCPCS: 77063; 77067

== ENCOUNTER → 2023-07-23 | Outpatient (CLI) | payer MEDICARE ==
--- NOTE | 2023-07-23 19:14 | US ---
EXAMINATION TYPE: US pelvic complete DATE OF EXAM: 07/23/2023 COMPARISON: 02/09/2022. CLINICAL INDICATION: Female, 73 years old with history of R10.2 PELVIC AND PERINEAL PAIN; new rt side pelvic pain. 6 month f/u on prominent Rt ovary. Hx hysterectomy and left salpingo-oophorectomy 1996 TECHNIQUE: Transabdominal (TA). Transabdominal sonographic images of the pelvis were acquired. Date of LMP: hysterectomy EXAM MEASUREMENTS: Uterus: Surgically absent Endometrial Stripe: Surgically absent Right Ovary: 3.3 x 2.3 x 2.8 cm vol: 11.3ml Left Ovary: Surgically absent 1. Uterus: Surgically absent 2. Endometrium: Surgically absent 3. Right Ovary: prominent, measures slightly smaller than prior 4. Left Ovary: Surgically absent 5. Bilateral Adnexa: Obscured by overlying bowel gas 6. Posterior cul-de-sac: wnl IMPRESSION: No evidence for acute process.
== END | disposition home or self-care (01) ==
LOC: RADUSWWP 10:15
PROVIDERS: ATTEND Family Medicine
DX: R10.2 Pelvic and perineal pain (principal); Z90.710 Acquired absence of both cervix and uterus; Z90.721 Acquired absence of ovaries, unilateral
CPT/HCPCS: 76856

== ENCOUNTER 2024-09-27 13:06 | Observation (INO) | payer MEDICARE ==
--- NOTE | 2024-09-27 13:32 | ED ---
General Adult HPI - General Chief complaint: Chest Pain Stated complaint: Chest Pain Time Seen by Provider: 09/27/24 13:09 Source: patient, EMS, RN notes reviewed Mode of arrival: EMS Limitations: no limitations - History of Present Illness Initial comments: Patient is a 74-year-old female present to the emergency department with concerns with chest discomfort. Onset of symptoms was yesterday evening. Discomfort does persist some. Discomfort is 5/10. Discomfort is right-sided and a little bit sharp. Patient has had some associated dyspnea. Patient had mild nausea. No diaphoresis. No history of similar symptoms previously. No worsening of symptoms with positions. - Related Data Home Medications Medication Instructions Recorded Confirmed Acetaminophen/Diphenhydramine 1 tab PO HS 07/03/23 07/03/23 [Tylenol PM 500-25mg] Aspirin [Adult Low Dose Aspirin EC] 81 mg PO DAILY 07/03/23 07/05/23 Isosorbide Mononitrate ER [Imdur] 30 mg PO DAILY 07/03/23 07/03/23 Magnesium 250 mg PO DAILY 07/03/23 07/03/23 Metoprolol Succinate [Metoprolol 25 mg PO DAILY 07/03/23 07/03/23 Succinate ER] Nf- Umary Hyaluronic Acid 1 tab PO DAILY 07/03/23 07/03/23 Omeprazole 20 mg PO DAILY 07/03/23 07/05/23 Potassium Gluconate 99 mg PO DAILY 07/03/23 07/03/23 Simvastatin 40 mg PO BID 07/03/23 07/03/23 Previous Rx's Medication Instructions Recorded Sulfamethox-Tmp 800-160Mg [Bactrim 1 each PO Q12HR #20 tab 05/31/24 Ds] Allergies Allergy/AdvReac Type Severity Reaction Status Date / Time amoxicillin trihydrate AdvReac Diarrhea Verified 05/31/24 17:33 [From Augmentin] potassium clavulanate AdvReac Diarrhea Verified 05/31/24 17:33 [From Augmentin] Review of Systems ROS Statement: Those systems with pertinent positive or pertinent negative responses have been documented in the HPI. ROS Other: All systems not noted in ROS Statement are negative. Constitutional: Denies: fever Eyes: Denies: eye pain ENT: Denies: ear pain Respiratory: Reports: as per HPI Cardiovascular: Reports: as per HPI, chest pain Endocrine: Denies: fatigue Gastrointestinal: Denies: abdominal pain Musculoskeletal: Denies: back pain Neurological: Denies: weakness Past Medical History Past Medical History: Asthma, CVA/TIA, Diabetes Mellitus, GERD/Reflux, Hyperlipidemia Additional Past Medical History / Comment(s): SOB History of Any Multi-Drug Resistant Organisms: None Reported Past Surgical History: Appendectomy, Cholecystectomy, Hysterectomy, Tonsillectomy Additional Past Surgical History / Comment(s): Stent 2023 Past Anesthesia/Blood Transfusion Reactions: No Reported Reaction Past Psychological History: No Psychological Hx Reported Smoking Status: Former smoker Past Alcohol Use History: None Reported Past Drug Use History: None Reported - Past Family History Mother Family Medical History: Cancer Father Additional Family Medical History / Comment(s): HEART DISEASE General Exam Limitations: no limitations General appearance: alert, in no apparent distress Head exam: Present: normocephalic Eye exam: Present: normal appearance Neck exam: Present: normal inspection Respiratory exam: Present: normal lung sounds bilaterally. Absent: chest wall tenderness Cardiovascular Exam: Present: regular rate, normal rhythm, normal heart sounds Expanded Peripheral pulses: 2+: Radial (R), Radial (L), Posterior Tibialis (R), Posterior Tibialis (L), Dorsalis Pedis (R), Dorsalis Pedis (L) GI/Abdominal exam: Present: soft. Absent: distended, tenderness, pulsatile mass Extremities exam: Present: normal inspection. Absent: pedal edema, calf tenderness Neurological exam: Present: alert Psychiatric exam: Present: normal affect, normal mood Skin exam: Present: normal color Course Vital Signs 09/27/24 09/27/24 09/27/24 13:12 13:30 14:00 Temperature 97.9 F Pulse Rate 72 60 56 L Respiratory 18 13 11 L Rate Blood Pressure 172/88 172/88 110/73 O2 Sat by Pulse 95 95 95 Oximetry EKG Findings - EKG Results: EKG: interpreted by ERMD, sinus rhythm, normal axis, normal QRS, normal ST/T Medical Decision Making - Medical Decision Making Was pt. sent in by a medical professional or institution (, PA, RAG WILLOW OPERATOR, urgent care, hospital, or assisted...) When possible be specific @ -No Did you speak to anyone other than the patient for history (EMS, parent, family, police, friend...)? What history was obtained from this source @ -No Did you review nursing and triage notes (agree or disagree)? Why? @ -I reviewed and agree with nursing and triage notes Were old charts reviewed (outside hosp., previous admission, EMS record, old EKG, old radiological studies, urgent care reports/EKG's, assisted records)? Report findings @ -No old charts were reviewed Differential Diagnosis (chest pain, altered mental status, abdominal pain women, abdominal pain men, vaginal bleeding, weakness, fever, dyspnea, syncope, headache, dizziness, GI bleed, back pain, seizure, CVA, palpatations, mental health, musculoskeletal)? @ -Differential Chest Pain: Stable Angina, Unstable Angina, STEMI, NSTEMI Aortic Dissection, Pneumothorax, Musculoskeletal, Esophageal Spasm GERD, Cholecystitis, Pancreatitis, Zoster, this is not meant to be an all-inclusive list. EKG interpreted by me (3pts min.). @ -As above X-rays interpreted by me (1pt min.). @ -Chest x-ray shows no acute process CT interpreted by me (1pt min.). @ -None done U/S interpreted by me (1pt. min.). @ -None done What testing was considered but not performed or refused? (CT, X-rays, U/S, labs)? Why? @ -None What meds were considered but not given or refused? Why? @ -None Did you discuss the management of the patient with other professionals (professionals i.e. , PA, RAG WILLOW OPERATOR, lab, RT, psych nurse, sr. social media & mobile manager, tax lawyer, teacher, horticultural technical officer, child welfare caseworker)? Give summary @ -Dr. Alas to admit covering Dr. Griffiths please Was smoking cessation discussed for >3mins.? @ -No Was critical care preformed (if so, how long)? @ -No Were there social determinants of health that impacted care today? How? (Homelessness, low income, unemployed, alcoholism, drug addiction, transportation, low edu. Level, literacy, decrease access to med. care, longterm, rehab)? @ -No Was there de-escalation of care discussed even if they declined (Discuss DNR or withdrawal of care, Hospice)? DNR status @ -No What co-morbidities impacted this encounter? (DM, HTN, Smoking, COPD, CAD, Cancer, CVA, ARF, Chemo, Hep., AIDS, mental health diagnosis, sleep apnea, morbid obesity)? @ -Coronary artery disease Was patient admitted / discharged? Hospital course, mention meds given and route, prescriptions, significant lab abnormalities, going to OR and other pertinent info. @ -Patient presents with chest discomfort and associated dyspnea. On reevaluation patient states symptoms are improving with nitroglycerin. Patient and family are updated on results and plan. Patient will be admitted with cardiac consult. Admission orders written. Undiagnosed new problem with uncertain prognosis? @ -No Drug Therapy requiring intensive monitoring for toxicity (Heparin, Nitro, Insulin, Cardizem)? @ -No Were any procedures done? @ -No Diagnosis/symptom? @ -Chest pain Acute, or Chronic, or Acute on Chronic? @ -Acute Uncomplicated (without systemic symptoms) or Complicated (systemic symptoms)? @ -Default Side effects of treatment? @ -No Exacerbation, Progression, or Severe Exacerbation? @ -No Poses a threat to life or bodily function? How? (Chest pain, USA, MD, pneumonia, PE, COPD, DKA, ARF, appy, cholecystitis, CVA, Diverticulitis, Homicidal, Suicidal, threat to staff... and all critical care pts) @ -Threat to cardiac function - Lab Data Result diagrams: 09/27/24 13:44 09/27/24 13:44 Lab Results 09/27/24 09/27/24 09/27/24 Range/Units 13:44 13:44 13:44 WBC 7.74 (4.50-10.00) 10*3/uL RBC 4.37 (4.10-5.20) 10*6/uL Hgb 11.5 L (12.0-15.0) g/dL Hct 37.9 (37.2-46.3) % MCV 86.7 (80.0-97.0) fL MCH 26.3 L (27.0-32.0) pg MCHC 30.3 L (32.0-37.0) g/dL Plt Count 271 (140-440) 10*3/uL MPV 10.1 (9.5-12.2) fL Immature Gran % (Auto) 0.1 % Neutrophils % 61.7 % Lymphocytes % 25.8 % Monocytes % 9.2 % Eosinophils % 2.6 % Basophils % 0.6 % Immature Gran # 0.01 (0.00-0.04) 10*3/uL Neutrophils # 4.77 (1.80-7.70) 10*3/uL Lymphocytes # 2.00 (0.90-5.00) 10*3/uL Monocytes # 0.71 (0.20-1.00) 10*3/uL Eosinophils # 0.20 (0.04-0.35) 10*3/uL Basophils # 0.05 (0.00-0.10) 10*3/uL PT 10.1 (10.0-12.5) sec INR 0.9 (<1.2) APTT 22.4 (22.0-30.0) sec D-Dimer 0.46 (<0.60) mg/L FEU Sodium 139 (137-145) mmol/L Potassium 4.3 (3.5-5.1) mmol/L Chloride 101 (98-107) mmol/L Carbon Dioxide 28 (22-30) mmol/L Anion Gap 10 mmol/L BUN 18 H (7-17) mg/dL Creatinine 0.65 (0.52-1.04) mg/dL Est GFR (CKD-EPI)AfAm >90 (>60 ml/min/1.73 sqM) Est GFR (CKD-EPI)NonAf 88 (>60 ml/min/1.73 sqM) Glucose 124 H (74-99) mg/dL Calcium 9.5 (8.4-10.2) mg/dL Magnesium 1.6 (1.6-2.3) mg/dL Total Bilirubin 0.6 (0.2-1.3) mg/dL AST 29 (14-36) U/L ALT 14 (4-34) U/L Alkaline Phosphatase 61 (38-126) U/L Troponin I (0.000-0.034) ng/mL Total Protein 7.1 (6.3-8.2) g/dL Albumin 4.1 (3.5-5.0) g/dL Amylase 46 (30-110) U/L Lipase 132 (23-300) U/L 09/27/24 Range/Units 13:44 WBC (4.50-10.00) 10*3/uL RBC (4.10-5.20) 10*6/uL Hgb (12.0-15.0) g/dL Hct (37.2-46.3) % MCV (80.0-97.0) fL MCH (27.0-32.0) pg MCHC (32.0-37.0) g/dL Plt Count (140-440) 10*3/uL MPV (9.5-12.2) fL Immature Gran % (Auto) % Neutrophils % % Lymphocytes % % Monocytes % % Eosinophils % % Basophils % % Immature Gran # (0.00-0.04) 10*3/uL Neutrophils # (1.80-7.70) 10*3/uL Lymphocytes # (0.90-5.00) 10*3/uL Monocytes # (0.20-1.00) 10*3/uL Eosinophils # (0.04-0.35) 10*3/uL Basophils # (0.00-0.10) 10*3/uL PT (10.0-12.5) sec INR (<1.2) APTT (22.0-30.0) sec D-Dimer (<0.60) mg/L FEU Sodium (137-145) mmol/L Potassium (3.5-5.1) mmol/L Chloride (98-107) mmol/L Carbon Dioxide (22-30) mmol/L Anion Gap mmol/L BUN (7-17) mg/dL Creatinine (0.52-1.04) mg/dL Est GFR (CKD-EPI)AfAm (>60 ml/min/1.73 sqM) Est GFR (CKD-EPI)NonAf (>60 ml/min/1.73 sqM) Glucose (74-99) mg/dL Calcium (8.4-10.2) mg/dL Magnesium (1.6-2.3) mg/dL Total Bilirubin (0.2-1.3) mg/dL AST (14-36) U/L ALT (4-34) U/L Alkaline Phosphatase (38-126) U/L Troponin I <0.012 (0.000-0.034) ng/mL Total Protein (6.3-8.2) g/dL Albumin (3.5-5.0) g/dL Amylase (30-110) U/L Lipase (23-300) U/L Disposition Clinical Impression: Chest pain Disposition: ADMITTED IP TO THIS [facility] Is patient prescribed a controlled substance at d/c from ED?: No Referrals: Leonard Deng DO [Primary Care Provider] - 1-2 days Time of Disposition: 14:36
[2024-09-27] MEDS: ASPIRIN 81 MG PO STA (13:43)
[2024-09-27 13:53] LABS: Basophils # (A) 0.05 10*3/uL (0.00-0.10); Basophils % (A) 0.6 %; Eosinophils % (A) 2.6 %; HCT 37.9 % (37.2-46.3); HGB 11.5 g/dL (12.0-15.0); Lymphocytes % (A) 25.8 %; MCH 26.3 pg (27.0-32.0); MCHC 30.3 g/dL (32.0-37.0); MCV 86.7 fL (80.0-97.0); Mean Platelet Volume 10.1 fL (9.5-12.2); Monocytes # (A) 0.71 10*3/uL (0.20-1.00); Monocytes % (A) 9.2 %; Neutrophils # (A) 4.77 10*3/uL (1.80-7.70); Neutrophils % (A) 61.7 %; Platelet Count 271 10*3/uL (140-440); RBC 4.37 10*6/uL (4.10-5.20); RDW 14.1 % (11.5-14.5); WBC 7.74 10*3/uL (4.50-10.00)
[2024-09-27 14:03] LABS: ALT 14 U/L (4-34); African American GFR (CKD) >90 (>60 ml/min/1.73 sqM); Amylase 46 U/L (30-110); Anion Gap 10 mmol/L; Blood Urea Nitrogen 18 mg/dL (7-17); Calcium 9.5 mg/dL (8.4-10.2); Carbon Dioxide 28 mmol/L (22-30); Chloride 101 mmol/L (98-107); Glucose 124 mg/dL (74-99); Lipase 132 U/L (23-300); Non-African American GFR(CKD) 88 (>60 ml/min/1.73 sqM); Sodium 139 mmol/L (137-145); Total Bilirubin 0.6 mg/dL (0.2-1.3)
[2024-09-27] MEDS: NITROGLYCERIN OINT 1 INCH/GM PACKET TOPICAL STA (14:11)
[2024-09-27 14:12] LABS: INR 0.9 (<1.2); Partial Thromboplastin Time 22.4 sec (22.0-30.0); Prothrombin Time 10.1 sec (10.0-12.5)
[2024-09-27 14:14] LABS: Magnesium 1.6 mg/dL (1.6-2.3); Potassium 4.3 mmol/L (3.5-5.1)
[2024-09-27 14:15] LABS: AST 29 U/L (14-36); Albumin 4.1 g/dL (3.5-5.0); Alkaline Phosphatase 61 U/L (38-126); Total Protein 7.1 g/dL (6.3-8.2)
--- NOTE | 2024-09-27 14:27 | XR ---
EXAMINATION TYPE: XR chest 2V DATE OF EXAM: 09/27/2024 1:56 PM COMPARISON: Chest radiographs from 10/02/2021. CLINICAL INDICATION: Female, 74 years old with history of Chest Pain; [facility] TECHNIQUE: XR chest 2V Frontal and lateral views of the chest. FINDINGS: Lungs/Pleura: There is flattening of the diaphragm with increased lucency of the lungs. No evidence o f pneumothorax, pleural effusion or focal consolidation. Pulmonary vascularity: Unremarkable. Heart/mediastinum: Cardiomediastinal silhouette is unremarkable. Musculoskeletal: No acute osseous pathology. IMPRESSION: 1. No acute cardiopulmonary disease process. 2. COPD changes. [facility], , 09/27/2024 2:24 PM
[2024-09-27] MEDS ORDERED: NITROGLYCERIN SL TABS 0.4 MG TAB SUBLINGUAL PRN (14:37)
--- NOTE | 2024-09-27 18:55 | P.HPIM ---
History of Present Illness H&P Date: 09/27/24 Chief Complaint: Short of breath Very pleasant 74-year-old patient who follows with Dr. Deng. 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 Chronic medical conditions include a stroke about 15 years ago with no residual, diabetes diet-controlled, GERD, hyperlipidemia. Had a coronary stent placed by Dr. Agustin close 2 years ago. Also with good arthritis of her back. Urine incon tinence. Patient has been getting short of breath when she walks. Typically about 15 to 20 feet. Yesterday became more short of breath. Does sometimes get dizzy. Also noticed some pain on the right lower lateral chest wall. Has decided to come in. Accompanied by his son in the ER. Review of systems: GEN.: Tired EYES: None HEENT: None NECK: None RESPIRATORY: As above] CARDIOVASCULAR: As above. No orthopnea. No edema. e GASTROINTESTINAL: None GENITOURINARY: [Some urine incontinence MUSCULOSKELETAL: Arthritic pain especially lower back LYMPHATICS: None HEMATOLOGICAL: None PSYCHIATRY: None NEUROLOGICAL: None Social history: Works as a volunteer in the hospital. Smoked a pack a day for 50 years stopped 5 years ago. Lives by herself. Physical examination: VITAL SIGNS: 98.4, 56, 16, 123 x 78, 91% on 2 L GENERAL: [BMI 35.2, sitting at the bed awake not in distress. EYES: Pupils equal. Conjunctiva mirna l. HEENT: External appearance of nose and ears normal, oral cavity grossly normal. NECK: JVD not raised; masses not palpable. HEART: First and second heart sounds are normal; no edema. LUNGS: Respiratory rate normal; decreased breath sound. ABDOMEN: Soft, nontender, liver spleen not palpable, no masses palpable. PSYCH: Alert and oriented x3; mood and affect mirna l. MUSCULOSKELETAL:No Clubbing/cyanosis;muscles-grossly intact. OA in some joints NEUROLOGICAL: Cranial nerves grossly intact; no facial asymmetry, power and sensation grossly intact. LYMPHATICS: No lymph nodes palpable in the axilla and neck INVESTIGATIONS, reviewed in the clinical context: White count 7.7 hemoglobin 11.5 platelets 271 sodium 139 potassium 4.3 creatinine 0.65 Troponin I less than 0.012 x 2 EKG tracing personally reviewed by me-normal sinus rhythm. Some ST segment changes in inferior lateral leads Chest x-ray film personally reviewed by me-hyperinflation Assessment plan: - Patient present increasing shortness of breath. Has been doing so for some time and walking about 10 to 15 feet. More so yesterday this morning. Also has seldom right-sided chest pain. Possible unstable angina with negative troponins. Telemetry. Initial 2 troponins negative. 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 Michelle Agustin Aspirin. Imdur. Metoprolol ER - GERD Omeprazole - Primary osteoarthritis multiple joints Tylenol PM - Chronic urine incontinence Care was discussed with the patient's son at the bedside. Questions answered. Past Medical History Past Medical History: Asthma, CVA/TIA, Diabetes Mellitus, GERD/Reflux, Hyperlipidemia Additional Past Medical History / Comment(s): SOB History of Any Multi-Drug Resistant Organisms: None Reported Past Surgical History: Appendectomy, Cholecystectomy, Hysterectomy, Tonsillectomy Additional Past Surgical History / Comment(s): Stent 2023 Past Anesthesia/Blood Transfusion Reactions: No Reported Reaction Past Psychological History: No Psychological Hx Reported Smoking Status: Former smoker Past Alcohol Use History: None Reported Past Drug Use History: None Reported - Past Family History Mother Family Medical History: Cancer Father Additional Family Medical History / Comment(s): HEART DISEASE Medications and Allergies Home Medications Medication Instructions Recorded Confirmed Type Acetaminophen/Diphenhydramine 1 tab PO HS 07/03/23 09/27/24 History [Tylenol PM 500-25mg] Aspirin [Adult Low Dose Aspirin EC] 81 mg PO HS 07/03/23 09/27/24 History Isosorbide Mononitrate ER [Imdur] 30 mg PO DAILY 07/03/23 09/27/24 History Metoprolol Succinate [Metoprolol 25 mg PO DAILY 07/03/23 09/27/24 History Succinate ER] Omeprazole 20 mg PO DAILY 07/03/23 09/27/24 History Simvastatin 80 mg PO HS 07/03/23 09/27/24 History Acetaminophen [Tylenol Arthritis] 1,300 mg PO HS 09/27/24 09/27/24 History Furosemide [Lasix] 20 mg PO DAILY 09/27/24 09/27/24 History Allergies Allergy/AdvReac Type Severity Reaction Status Date / Time amoxicillin trihydrate AdvReac Diarrhea Verified 09/27/24 16:18 [From Augmentin] potassium clavulanate AdvReac Diarrhea Verified 09/27/24 16:18 [From Augmentin] Physical Exam Vitals: Vital Signs Temp Pulse Resp BP Pulse Ox 09/27/24 18:36 98.4 F 56 L 16 123/78 91 L 09/27/24 18:24 56 L 14 123/78 91 L 09/27/24 14:00 56 L 11 L 110/73 95 09/27/24 13:30 60 13 172/88 95 09/27/24 13:12 97.9 F 72 18 172/88 95 Intake and Output 09/27/24 09/27/24 09/27/24 06:59 14:59 22:59 Other: Weight 92.986 kg Results CBC & Chem 7: 09/27/24 13:44 09/27/24 13:44 Labs: Abnormal Lab Results - Last 24 Hours (Table) 09/27/24 09/27/24 Range/Units 13:44 13:44 Hgb 11.5 L (12.0-15.0) g/dL MCH 26.3 L (27.0-32.0) pg MCHC 30.3 L (32.0-37.0) g/dL BUN 18 H (7-17) mg/dL Glucose 124 H (74-99) mg/dL
[2024-09-27] MEDS: NITROGLYCERIN OINT 1 INCH/GM PACKET TOPICAL SCH (20:22)
[2024-09-27] MEDS: ACETAMINOPHEN TAB 500 MG TAB PO SCH (20:23)
[2024-09-27] MEDS: ATORVASTATIN 40 MG TAB PO SCH (20:23)
[2024-09-28 07:26] VITALS: BP 166/71; PULSE 65; TEMP 98.1
[2024-09-28] MEDS: ASPIRIN 325 MG TAB PO SCH (09:26)
[2024-09-28] MEDS: PANTOPRAZOLE 40 MG TABLET PO SCH (09:26)
[2024-09-28] MEDS: METOPROLOL SUCCINATE (ER) 25 MG TAB.ER.24H PO SCH (09:27)
[2024-09-28] MEDS: ISOSORBIDE MONONITRATE ER 30 MG TAB.ER.24H PO SCH (09:27)
[2024-09-28] MEDS: FUROSEMIDE 20 MG TAB PO SCH (09:27)
[2024-09-28 09:40] LABS: LDL Cholesterol,Calculated 108.2 mg/dL (0.0-131.0); VLDL Calculation 18.26 mg/dL (5.00-40.00)
[2024-09-28 11:41] VITALS: RESP 19
--- NOTE | 2024-09-28 12:18 | P.CRDCN ---
History of Present Illness Consult date: 09/28/24 Consult reason: chest pain History of present illness: This is a 74-year-old male patient of Dr. Michelle Agustin with past medical history of dyslipidemia, coronary artery disease. We have been asked to evaluate the patient for chest pain. Patient gives history that she was driving from her home and yelled to her sisters in [place] and sometimes when she does this and she knows she is going to be in the car for an extended period she is does not take her Lasix in the morning and takes it later in the day. On her drive, she became extremely short of breath and by the time she reached her sister so she could hardly get into the house. Patient came into [facility] emergency center for evaluation and was resumed on her home cardiac medications. She states she is feeling a lot better today. She is off oxygen. Blood pressure 166/71, heart rate 65, pulse ox 92% on room air. Findings discussed with the patient and she feels that she is comfortable to go home today. Her symptoms have completely resolved. -EKG: Sinus rhythm with no acute ST-T wave changes. -Chest x-ray: No acute changes. COPD. -Laboratory studies: WBC 7.7, hemoglobin 1.5, D-dimer 0.46. Electrolytes are normal. Troponin negative x 3 draws. Triglycerides 91, cholesterol 201, LDL 108. -Home cardiac medications: Aspirin 81 mg daily, Lasix 20 mg daily, Imdur 30 mg daily, metoprolol succinate 25 mg daily, simvastatin 80 mg at bedtime. -Cardiac catheterization performed 07/05/2023 revealed severe obstructive disease in the mid left circumflex and the patient underwent stenting of the mid left circumflex with Dr. Peace. Review Of Systems: At the time of my exam: CONSTITUTIONAL: Denies fever or chills. HEENT: Denies blurred vision, vision changes, or eye pain. Denies hemoptysis CARDIOVASCULAR: Denies chest pain. Denies orthopnea. Denies PND. Denies palpitations RESPIRATORY: Denies shortness of breath. GASTROINTESTINAL: Denies abdominal pain. Denies nausea or vomiting. HEMATOLOGIC: Denies bleeding disorders. GENITOURINARY: Denies any blood in urine. SKIN: Denies puritis. Denies rash. Physical examination: Gen: This is a 74-year-old female in no acute distress VS: reviewed HEENT: Head is atraumatic, normocephalic. Pupils equal, round. Sclerae is anicteric. NECK: Supple. No JVD. LUNGS: Clear to auscultation. No wheezes or rhonchi. No intercostal retractions. HEART: Regular rate and rhythm. No murmur. ABDOMEN: Soft No tenderness. EXTREMITIES: No pedal edema. No calf tenderness. NEUROLOGICAL: Patient is awake, alert and oriented x3. Assessment: Atypical chest pain, acute coronary syndrome ruled out Dyspnea most likely due to missing Lasix dose dyslipidemia History of coronary artery disease Plan: Resume patient's home cardiac medications No further cardiac workup at this time. Patient is cleared for discharge from cardiology perspective and will follow-up in the office with Dr. Agustin in 2 weeks. Thank you kindly for this consultation. Nurse practitioner note has been reviewed, I agree with documented findings and plan of care. Patient was seen and examined. Past Medical History Past Medical History: Asthma, CVA/TIA, Diabetes Mellitus, GERD/Reflux, Hyperlipidemia Additional Past Medical History / Comment(s): SOB History of Any Multi-Drug Resistant Organisms: None Reported Past Surgical History: Appendectomy, Cholecystectomy, Hysterectomy, Tonsillectomy Additional Past Surgical History / Comment(s): Stent 2023 Past Anesthesia/Blood Transfusion Reactions: No Reported Reaction Past Psychological History: No Psychological Hx Reported Smoking Status: Former smoker Past Alcohol Use History: None Reported Past Drug Use History: None Reported - Past Family History Mother Family Medical History: Cancer Father Additional Family Medical History / Comment(s): HEART DISEASE Medications and Allergies Home Medications Medication Instructions Recorded Confirmed Type Acetaminophen/Diphenhydramine 1 tab PO HS 07/03/23 09/27/24 History [Tylenol PM 500-25mg] Aspirin [Adult Low Dose Aspirin EC] 81 mg PO HS 07/03/23 09/27/24 History Isosorbide Mononitrate ER [Imdur] 30 mg PO DAILY 07/03/23 09/27/24 History Metoprolol Succinate [Metoprolol 25 mg PO DAILY 07/03/23 09/27/24 History Succinate ER] Omeprazole 20 mg PO DAILY 07/03/23 09/27/24 History Simvastatin 80 mg PO HS 07/03/23 09/27/24 History Acetaminophen [Tylenol Arthritis] 1,300 mg PO HS 09/27/24 09/27/24 History Furosemide [Lasix] 20 mg PO DAILY 09/27/24 09/27/24 History Allergies Allergy/AdvReac Type Severity Reaction Status Date / Time amoxicillin trihydrate AdvReac Diarrhea Verified 09/27/24 16:18 [From Augmentin] potassium clavulanate AdvReac Diarrhea Verified 09/27/24 16:18 [From Augmentin] Physical Exam Vitals: Vital Signs Temp Pulse Pulse Resp BP BP BP 09/28/24 08:45 09/28/24 07:00 98.1 F 65 17 166/71 09/28/24 02:36 78 16 09/28/24 01:54 98 F 78 16 146/76 09/27/24 20:23 63 16 09/27/24 19:58 97.9 F 63 16 146/69 09/27/24 18:36 98.4 F 56 L 16 123/78 09/27/24 18:24 56 L 14 123/78 09/27/24 14:00 56 L 11 L 110/73 09/27/24 13:30 60 13 172/88 09/27/24 13:12 97.9 F 72 18 172/88 Pulse Ox 09/28/24 08:45 93 L 09/28/24 07:00 93 L 09/28/24 02:36 09/28/24 01:54 93 L 09/27/24 20:23 09/27/24 19:58 94 L 09/27/24 18:36 91 L 09/27/24 18:24 91 L 09/27/24 14:00 95 09/27/24 13:30 95 09/27/24 13:12 95 Intake and Output 09/27/24 09/28/24 09/28/24 22:59 06:59 14:59 Other: Voiding Method Toilet Toilet # Voids 1 2 Weight 92.986 kg Results 09/27/24 13:44 09/27/24 13:44 Cardiac Enzymes 09/27/24 09/27/24 09/27/24 Range/Units 13:44 13:44 16:52 AST 29 (14-36) U/L Troponin I <0.012 <0.012 (0.000-0.034) ng/mL 06/14/25 Range/Units 21:59 AST (14-36) U/L Troponin I <0.012 (0.000-0.034) ng/mL Coagulation 09/27/24 Range/Units 13:44 PT 10.1 (10.0-12.5) sec APTT 22.4 (22.0-30.0) sec Lipids 09/27/24 Range/Units 13:44 Triglycerides 91.30 (0.00-149.00) mg/dL Cholesterol 201.00 H (0.00-200.00) mg/dL HDL Cholesterol 74.50 H (40.00-60.00) mg/dL Cholesterol/HDL Ratio 2.70 Ratio CBC 09/27/24 Range/Units 13:44 WBC 7.74 (4.50-10.00) 10*3/uL RBC 4.37 (4.10-5.20) 10*6/uL Hgb 11.5 L (12.0-15.0) g/dL Hct 37.9 (37.2-46.3) % Plt Count 271 (140-440) 10*3/uL Comprehensive Metabolic Panel 09/27/24 Range/Units 13:44 Sodium 139 (137-145) mmol/L Potassium 4.3 (3.5-5.1) mmol/L Chloride 101 (98-107) mmol/L Carbon Dioxide 28 (22-30) mmol/L BUN 18 H (7-17) mg/dL Creatinine 0.65 (0.52-1.04) mg/dL Glucose 124 H (74-99) mg/dL Calcium 9.5 (8.4-10.2) mg/dL AST 29 (14-36) U/L ALT 14 (4-34) U/L Alkaline Phosphatase 61 (38-126) U/L Total Protein 7.1 (6.3-8.2) g/dL Albumin 4.1 (3.5-5.0) g/dL Current Medications Generic Name Dose Route Start Last Admin Trade Name Freq PRN Reason Stop Dose Admin Acetaminophen 1,000 mg 09/27/24 21:00 09/27/24 20:23 Acetaminophen Tab 500 Mg Tab PO 1,000 mg HS LEELA Administration Albuterol/Ipratropium 3 ml 09/28/24 08:57 Ipratropium-Albuterol 3 Ml Neb INHALATION RT-QID LEELA Aspirin 325 mg 06/15/25 09:00 09/28/24 09:26 Aspirin 325 Mg Tab PO 325 mg DAILY LEELA Administration Atorvastatin Calcium 40 mg 09/27/24 21:00 09/27/24 20:23 Atorvastatin 40 Mg Tab PO 40 mg HS LEELA Administration Furosemide 20 mg 09/28/24 09:00 09/28/24 09:27 Furosemide 20 Mg Tab PO 20 mg DAILY LEELA Administration Isosorbide Mononitrate 30 mg 09/28/24 09:00 09/28/24 09:27 Isosorbide Mononitrate Er 30 Mg Tab.Er.24h PO 30 mg DAILY LEELA Administration Metoprolol Succinate 25 mg 09/28/24 09:00 09/28/24 09:27 Metoprolol Succinate (Er) 25 Mg Tab.Er.24h PO 25 mg DAILY LEELA Administration Nitroglycerin 0.4 mg 09/27/24 14:37 Nitroglycerin Sl Tabs 0.4 Mg Tab SUBLINGUAL Q5M PRN Chest Pain Pantoprazole Sodium 40 mg 09/28/24 09:00 09/28/24 09:26 Pantoprazole 40 Mg Tablet PO 40 mg DAILY [facility] Administration Sodium Chloride 10 ml 09/27/24 21:00 09/28/24 09:27 Sodium Chloride 0.9% Flush 10 Ml Syringe IV 10 ml BID LEELA Administration Intake and Output 09/27/24 09/28/24 09/28/24 22:59 06:59 14:59 Other: Voiding Method Toilet Toilet # Voids 1 2 Weight 92.986 kg 09/27/24 13:44 09/27/24 13:44
[2024-09-28] MEDS: IPRATROPIUM-ALBUTEROL 3 ML NEB INHALATION SCH (12:25)
--- NOTE | 2024-09-29 10:21 | P.DS ---
Providers Date of admission: 09/27/24 14:37 Expected date of discharge: 09/28/24 Attending physician: Nikolay Alas Consults: 09/27/24 14:37 Consult Physician Urgent Consulting Provider: Anderson Elkins Consult Reason/Comments: cp Do you want consulting provider notified?: Yes Primary care physician: [facility] Course: Chief Complaint: Short of breath Very pleasant 74-year-old patient who follows with Dr. Deng. Plater Supervisor Dr. Michelle Agustin. Chronic medical conditions include a stroke about 15 years ago with no residual, diabetes diet-controlled, GERD, hyperlipidemia. Had a coronary stent placed by Dr. Agustin close 2 years ago. Also with good arthritis of her back. Urine incontinence. Patient has been getting short of breath when she walks. Typically about 15 to 20 feet. Yesterday became more short of breath. Does sometimes get dizzy. Also noticed some pain on the right lower lateral chest wall. Has decided to come in. Accompanied by his son in the ER. September 28: Patient feeling better. Patient did say that she was traveling to see her sister and send clinic from [place]. She decided not to take her Lasix. That could have contributed to presentation increase shortness of breath. Patient seen by Dr. Michelle Agustin from cardiology. No further intervention. Follow-up with him in the office in couple of weeks. Discussion and discharge planning more than 35 minutes Social history: Works as a volunteer in the hospital. Smoked a pack a day for 50 years stopped 5 years ago. Lives by herself. Physical examination: VITAL SIGNS: 98.1, 65, 17, 166 x 71, 92% room air GENERAL: [BMI 35.2, sitting at the edge of the bed, comfortable EYES: Pupils equal. Conjunctiva mirna l. HEENT: External appearance of nose and ears normal, oral cavity grossly normal. NECK: JVD not raised; masses not palpable. HEART: First and second heart sounds are normal; no edema. LUNGS: Respiratory rate normal; decreased breath sound. ABDOMEN: Soft, nontender, liver spleen not palpable, no masses palpable. PSYCH: Alert and oriented x3; mood and affect mirna l. MUSCULOSKELETAL:No Clubbing/cyanosis;muscles-grossly intact. OA in some joints INVESTIGATIONS, reviewed in the clinical context: LDL 108 White count 7.7 hemoglobin 11.5 platelets 271 sodium 139 potassium 4.3 creatinine 0.65 Troponin I less than 0.012 x 2 EKG tracing personally reviewed by me-normal sinus rhythm. Some ST segment changes in inferior lateral leads Chest x-ray film personally reviewed by me-hyperinflation Assessment plan: - Atypical chest pain Seen by cardiology. 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 Albuterol as needed - Obesity BMI 35.2 Weight loss measures - CAD with history of coronary stent about a year ago Follows with stress analyst Dr. Michelle Agustin Aspirin. Imdur. Metoprolol ER - GERD Omeprazole - Primary osteoarthritis multiple joints Tylenol PM - Chronic urine incontinence Disposition: Home Past Medical History Past Medical History: Asthma, CVA/TIA, Diabetes Mellitus, GERD/Reflux, H yperlipidemia Additional Past Medical History / Comment(s): SOB History of Any Multi-Drug Resistant Organisms: None Reported Past Surgical History: Appendectomy, Cholecystectomy, Hysterectomy, Tonsillectomy Additional Past Surgical History / Comment(s): Stent 2023 Past Anesthesia/Blood Transfusion Reactions: No Reported Reaction Past Psychological History: No Psychological Hx Reported Smoking Status: Former smoker Past Alcohol Use History: None Reported Past Drug Use History: None Reported Plan - Discharge Summary Discharge Rx Participant: No New Discharge Prescriptions: Continue Metoprolol Succinate [Metoprolol Succinate ER] 25 mg PO DAILY Aspirin [Adult Low Dose Aspirin EC] 81 mg PO HS Simvastatin 80 mg PO HS Acetaminophen/Diphenhydramine [Tylenol PM 500-25mg] 1 tab PO HS Omeprazole 20 mg PO DAILY Isosorbide Mononitrate ER [Imdur] 30 mg PO DAILY Furosemide [Lasix] 20 mg PO DAILY Acetaminophen [Tylenol Arthritis] 1,300 mg PO HS Discharge Medication List Acetaminophen/Diphenhydramine [Tylenol PM 500-25mg] 1 tab PO HS 07/03/23 [History] Aspirin [Adult Low Dose Aspirin EC] 81 mg PO HS 07/03/23 [History] Isosorbide Mononitrate ER [Imdur] 30 mg PO DAILY 07/03/23 [History] Metoprolol Succinate [Metoprolol Succinate ER] 25 mg PO DAILY 07/03/23 [History] Omeprazole 20 mg PO DAILY 07/03/23 [History] Simvastatin 80 mg PO HS 07/03/23 [History] Acetaminophen [Tylenol Arthritis] 1,300 mg PO HS 09/27/24 [History] Furosemide [Lasix] 20 mg PO DAILY 09/27/24 [History] Follow up Appointment(s)/Referral(s): Leonard Deng DO [Primary Care Provider] - 1-2 days Juwan Agustin MD [STAFF PHYSICIAN] - 2 Weeks Patient Instructions/Handouts: Chest Pain (DC) Discharge Disposition: HOME SELF-CARE
== END 2024-09-28 13:40 | disposition home or self-care (01) ==
LOC: EC 13:06 → 6NMEDSUR 14:37
PROVIDERS: ADMIT Hospitalist; ATTEND Hospitalist
DX: R07.89 Other chest pain (principal); J44.89 Other specified chronic obstructive pulmonary disease; J43.9 Emphysema, unspecified; N39.498 Other specified urinary incontinence; E66.9 Obesity, unspecified; E11.9 Type 2 diabetes mellitus without complications; E78.5 Hyperlipidemia, unspecified; I25.10 Atherosclerotic heart disease of native coronary artery without angina pectoris; K21.9 Gastro-esophageal reflux disease without esophagitis; M15.9 Polyosteoarthritis, unspecified; Z79.82 Long term (current) use of aspirin; Z79.899 Other long term (current) drug therapy; Z86.73 Personal history of transient ischemic attack (TIA), and cerebral infarction without residual deficits; Z87.891 Personal history of nicotine dependence; Z95.5 Presence of coronary angioplasty implant and graft; Z88.0 Allergy status to penicillin; Z88.8 Allergy status to other drugs, medicaments and biological substances; Z68.35 Body mass index [BMI] 35.0-35.9, adult
CPT/HCPCS: 99285; 36415; 94760; 93005 ×2; 85379; 80061; 80053; 82150; 83690; 83735; 84484; 85025; 85610; 85730; 71046; G0378 ×2